=== PATIENT | female | born 1980 | race Hispanic/Latino ===

== ENCOUNTER 2022-07-24 20:57 | Emergency (ER) | payer OTHER ==
[2022-07-24] MEDS ORDERED: ONDANSETRON 4 MG/2 ML VIAL ONE (21:45)
[2022-07-24] MEDS ORDERED: FAMOTIDINE 20 MG/2 ML VIAL IV ONE (21:45)
[2022-07-24] MEDS ORDERED: MORPHINE 4 MG/ML SYR ONE (21:45)
[2022-07-24] MEDS ORDERED: NA CHLORIDE 0.9% 1,000 ML ONE (21:45)
[2022-07-24 22:04] LABS: Urine Blood 2+ (Negative); Urine Glucose Negative (Negative); Urine Protein 2+ (Negative); Urine Specific Gravity >=1.030 (1.005-1.030); Urine pH 5.5 (5.0-7.0)
[2022-07-24 22:12] LABS: Absolute Lymphocytes (CBC) 2.8 K/uL (0.7-4.9); Hematocrit 33.4 % (36.0-45.0); Lymphocytes % 28.1 % (15.3-44.8); MCV 79.4 fL (80-100); MPV 8.8 fL (7.6-11.3); RBC Red Blood Cell Count 4.21 M/uL (3.86-4.86)
[2022-07-24 22:29] LABS: Urine Specific Gravity/Preg >1.030 (1.005-1.030)
[2022-07-24 22:32] LABS: Albumin 2.8 g/dL (3.4-5.0); Bilirubin Total 0.3 mg/dL (0.2-1.0); Potassium 3.9 mmol/L (3.5-5.1)
--- NOTE | 2022-07-24 23:23 | RAD REPORT ---
EXAM DESCRIPTION: CTAbdomen Pelvis W Contrast - 07/24/2022 11:16 pm CLINICAL HISTORY: Epigastric pain COMPARISON: No comparisons TECHNIQUE: CT of the abdomen and pelvis was performed with IV contrast. All CT scans are performed using dose optimization technique as appropriate and may include automated exposure control or mA/KV adjustment according to patient size. FINDINGS: Lower chest: No acute abnormality. Liver: No acute abnormality or suspicious lesions. Biliary: Cholecystectomy Stomach: No significant focal abnormality. Duodenum: No significant focal abnormality. Pancreas: No significant abnormality. Spleen: No significant abnormality. Adrenal: No suspicious lesions. Kidney/ureter: No hydronephrosis. No renal calculi. Retroperitoneum: No retroperitoneal adenopathy. Vascular: No aneurysm. Bowel: No significant focal abnormality. No appendicitis. Peritoneum: No ascites or free air. Small fat containing inguinal hernias. Bladder: Circumferential bladder wall thickening and hyperenhancement. Reproductive: 5.6 cm left adnexal cyst. Bones: No acute fracture. Other: n/a IMPRESSION: 1. Bladder wall thickening and hyperenhancement concerning for cystitis. 2. 5.6 cm left adnexal cyst. Recommend 6 week follow-up pelvic ultrasound. This is probably physiolog ic.
--- NOTE | 2022-07-25 00:53 | EDPHYS ---
Physician Documentation [facility] Name: Saskia Urbina Age: 41 yrs Sex: Female : 1980 Arrival Date: 07/24/2022 Time: 21:02 Bed 13 Private MD: ED Physician Tae Bettencourt HPI: 07/24 21:39 This 41 yrs old Female presents to ER via Ambulatory with complaints of pm1 Abdominal Pain. 21:39 The patient presents with abdominal pain in the epigastric area, in the left lower pm1 quadrant. 07/25 02:47 Onset: The symptoms/episode began/occurred 3 day(s) ago. The symptoms do not radiate. pm1 Associated signs and symptoms: Pertinent positives: diarrhea, Pertinent negatives: nausea and vomiting, fever. The symptoms are described as achy. Modifying factors: The symptoms are alleviated by nothing, the symptoms are aggravated by touching the area. Severity of pain: in the emergency department the pain is actually worse. The patient has not experienced similar symptoms in the past. The patient has not recently seen a physician. 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 - Social history:: Smoking status: Patient reports the use of cigarette tobacco products, denies chronic smoking, but will smoke occasionally. ROS: 21:39 Constitutional: Negative for fever, chills, and weight loss, Cardiovascular: Negative pm1 for chest pain, palpitations, and edema, Respiratory: Negative for shortness of breath, cough, wheezing, and pleuritic chest pain. 21:39 Back: Negative for injury and pain, : Negative for injury, bleeding, discharge, and swelling, MS/Extremity: Negative for injury and deformity, Skin: Negative for injury, rash, and discoloration, Neuro: Negative for headache, weakness, numbness, tingling, and seizure. 21:39 Abdomen/GI: Positive for abdominal pain, diarrhea, of the epigastric area and left lower quadrant, Negative for nausea and vomiting. 21:39 All other systems are negative. Exam: 21:39 Constitutional: This is a well developed, well nourished patient who is awake, alert, pm1 and in no acute distress. Head/Face: Normocephalic, atraumatic. 21:39 Back: No spinal tenderness. No costovertebral tenderness. Full range of motion. Skin: Warm, dry with normal turgor. Normal color with no rashes, no lesions, and no evidence of cellulitis. MS/ Extremity: Pulses equal, no cyanosis. Neurovascular intact. Full, normal range of motion. 21:39 Eyes: Exam is negative for acute changes, Extraocular movements: no acute changes, Conjunctiva: no acute changes, no injection. 21:39 ENT: Exam is negative for acute changes, Mouth: no acute changes, Lips: normal, moist, Oral mucosa: normal, pink and intact, moist. 21:39 Cardiovascular: Exam negative for acute changes, Rate: normal, Rhythm: regular, Pulses: no pulse deficits are appreciated. 21:39 Respiratory: Exam negative for acute changes, respiratory distress, shortness of breath. 21:39 Abdomen/GI: Inspection: obese Palpation: soft, in all quadrants, mild abdominal tenderness, in the epigastric area, suprapubic area and left lower quadrant, rebound tenderness, is not appreciated. 21:39 Neuro: Exam negative for acute changes, Orientation: is normal, Mentation: is normal, Motor: is normal, moves all fours. Vital Signs: 21:13 Pulse 57; Resp 20; Temp 98.7; Pulse Ox 100% ; Weight 107.05 kg; Height 5 ft. 5 in. kb3 (165.10 cm); Pain 10/10; 21:31 BP 136 / 69; Pulse 66; Resp 17 S; Pulse Ox 98% on R/A; Height 5 ft. 5 in. (165.10 cm) aa9 (R); 22:00 BP 119 / 75; Pulse 57; Resp 17 S; Pulse Ox 95% on R/A; aa9 22:30 BP 112 / 70; Pulse 60; Resp 17 S; Pulse Ox 96% on R/A; aa9 07/25 00:40 BP 103 / 62; Pulse 47; Resp 16 S; Pulse Ox 99% on R/A; aa9 07/24 21:31 Body Mass Index 39.27 (107.05 kg, 165.10 cm) 9 MDM: 07/24 21:25 Patient medically screened. pm1 07/25 00:51 Data reviewed: vital signs. Data interpreted: Pulse oximetry: on room air is 99 %. pm1 Interpretation: normal. Counseling: I had a detailed discussion with the patient and/or guardian regarding: the historical points, exam findings, and any diagnostic results supporting the discharge/admit diagnosis, lab results, radiology results, the need for outpatient follow up, to return to the emergency department if symptoms worsen or persist or if there are any questions or concerns that arise at home. 07/24 21:39 Order name: CBC with Diff; Complete Time: 22:39 pm1 07/24 21:39 Order name: CMP; Complete Time: 22:39 pm1 07/24 21:39 Order name: Lipase; Complete Time: 22:39 pm1 07/24 22:04 Order name: Urine Dipstick-Ancillary; Complete Time: 22:07 EDMS 07/24 22:26 Order name: Urine --Ancillary (enter results); Complete Time: 22:39 2 07/24 23:25 Order name: Urine Microscopic Only pm1 07/24 21:39 Order name: CT Abd/Pelvis - IV Contrast Only; Complete Time: 23:25 pm1 07/24 21:39 Order name: IV Saline Lock; Complete Time: 22:05 pm1 07/24 21:39 Order name: Labs collected and sent; Complete Time: 22:05 pm1 07/24 21:39 Order name: Urine Dipstick-Ancillary (obtain specimen); Complete Time: 22:05 pm1 07/24 21:39 Order name: Urine Test (obtain specimen); Complete Time: 22:05 pm1 Administered Medications: 07/24 22:06 Drug: NS 0.9% 1000 ml Route: IV; Rate: 1 bolus; Site: right forearm; aa9 07/25 00:50 Follow up: Response: No adverse reaction; IV Status: Completed infusion; IV Intake: aa9 1000ml 07/24 22:06 Drug: Pepcid (famotidine) 20 mg Route: IVP; Site: right forearm; aa9 22:39 Follow up: Response: No adverse reaction 22:06 Drug: Zofran (Ondansetron) 4 mg Route: IVP; Site: right forearm; aa9 22:39 Follow up: Response: No adverse reaction aa9 22:06 Drug: morphine 4 mg Route: IVP; Infused Over: 4 mins; Site: right forearm; aa9 22:39 Follow up: Response: No adverse reaction; RASS: Alert and Calm (0) 07/25 01:08 Drug: Rocephin (cefTRIAXone) 1 grams Route: IV; Rate: calculated rate; Site: right aa9 antecubital; 01:08 Follow up: Response: No adverse reaction; IV Status: Completed infusion; IV Intake: [id number] Disposition Summary: 07/25/22 00:51 Discharge Ordered Location: Home pm1 Problem: new pm1 Symptoms: have improved pm1 Condition: Stable pm1 Diagnosis - Acute cystitis pm1 - Other ovarian cysts pm1 Followup: pm1 - With: Emergency Department - When: As needed - Reason: Worsening of condition Followup: pm1 - With: Private Physician - When: 2 - 3 days - Reason: Recheck today's complaints, Continuance of care, Re-evaluation by your physician Discharge Instructions: - Discharge Summary Sheet pm1 - Ovarian Cyst pm1 - Urinary Tract Infection, Adult pm1 Forms: - Medication Reconciliation Form pm1 - Thank You Letter pm1 - Antibiotic Education pm1 - Prescription Opioid Use pm1 Prescriptions: - Bactrim DS 800-160 mg Oral Tablet - take 1 tablet by ORAL route every 12 hours for 10 days; 20 tablet; Refills: 0, pm1 Product Selection Permitted - Tramadol 50 mg Oral Tablet - take 1 tablet by ORAL route every 8 hours as needed; 12 tablet; Refills: 0, pm1 Product Selection Permitted Addendum: 07/31/2022 09:56 Co-signature as Attending Physician, Tae Bettencourt MD I agree with the assessment and c hilliard plan of care. Signatures: Dispatcher [employer] Tae Alfonso MD MD cha Marinas, Patrick, NP ROTARY LITHOGRAPHIC PRESS OPERATOR pm1 Valentina Carvajal RN RN aa9 Jeanine Lynn RN RN kb3 Corrections: (The following items were deleted from the chart) 07/25 02:47 07/24 21:39 The patient presents with abdominal pain in the lower abdomen, pm1 pm1
--- NOTE | 2022-07-25 00:53 | ER ---
Nurse's Notes [facility] Name: Saskia Urbina Age: 41 yrs Sex: Female : 1980 Arrival Date: 07/24/2022 Time: 21:02 Bed 13 Private MD: Diagnosis: Acute cystitis;Other ovarian cysts Presentation: 07/24 21:13 Chief complaint: Patient states: Epigastric and left-sided abdominal pain x3 days with kb3 diarrhea. Denies vomiting, fever. Coronavirus screen: Vaccine status: Patient reports receiving the 2nd dose of the covid vaccine. Client denies travel out of the [place] in the last 14 days. Ebola Screen: Patient negative for fever greater than or equal to 101.5 degrees Fahrenheit, and additional compatible Ebola Virus Disease symptoms Patient denies exposure to infectious person. Patient denies travel to an Ebola-affected area in the 21 days before illness onset. Initial Sepsis Screen: Does the patient meet any 2 criteria? No. Patient's initial sepsis screen is negative. Does the patient have a suspected source of infection? No. Patient's initial sepsis screen is negative. Risk Assessment: Do you want to hurt yourself or someone else? Patient reports no desire to harm self or others. Onset of symptoms was July 21, 2022. 21:13 Method Of Arrival: Ambulatory kb3 21:13 Acuity: PAGE 3 kb3 Triage Assessment: 21:14 General: Appears in no apparent distress. Behavior is calm, cooperative. Pain: kb3 Complains of pain in epigastric area, left upper quadrant and left lower quadrant Pain does not radiate. Pain currently is 10 out of 10 on a pain scale. GI: Reports upper abdominal pain, diarrhea, epigastric pain. 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 - Social history:: Smoking status: Patient reports the use of cigarette tobacco products, denies chronic smoking, but will smoke occasionally. Screenin:31 Abuse screen: Denies threats or abuse. Denies injuries from another. Nutritional aa9 screening: No deficits noted. Tuberculosis screening: No symptoms or risk factors identified. Fall Risk None identified. Assessment: 21:29 General: Appears uncomfortable, obese, Behavior is cooperative, appropriate for age. aa9 Pain: Complains of pain in epigastric area, posterior aspect of left lateral abdomen, left upper quadrant and left lower quadrant Pain currently is 6 out of 10 on a pain scale. Quality of pain is described as burning, Noted to be grimacing, Also complains of nausea. Neuro: Level of Consciousness is awake, alert, obeys commands, Oriented to person, place, time, situation. Cardiovascular: Patient's skin is warm and dry. Respiratory: Airway is patent Respiratory effort is even, unlabored. GI: Bowel sounds present X 4 quads. Abd is soft X 4 quads Abdomen is tender to palpation in epigastric area, suprapubic area, left upper quadrant and left lower quadrant Reports diarrhea, nausea, Patient currently denies vomiting. : No signs and/or symptoms were reported regarding the genitourinary system. EENT: No signs and/or symptoms were reported regarding the EENT system. Derm: Skin is intact, is healthy with good turgor. Musculoskeletal: No signs and/or symptoms reported regarding the musculoskeletal system. 23:54 Reassessment: Patient appears in no apparent distress at this time. Patient is alert, aa9 oriented x 3, equal unlabored respirations, skin warm/dry/pink. Patient denies pain at this time. 07/25 00:46 Reassessment: Patient appears in no apparent distress at this time. pt ambulated to aa9 restroom independently. Vital Signs: 07/24 21:13 Pulse 57; Resp 20; Temp 98.7; Pulse Ox 100% ; Weight 107.05 kg; Height 5 ft. 5 in. kb3 (165.10 cm); Pain 06/23; 21:31 BP 136 / 69; Pulse 66; Resp 17 S; Pulse Ox 98% on R/A; Height 5 ft. 5 in. (165.10 cm) aa9 (R); 22:00 BP 119 / 75; Pulse 57; Resp 17 S; Pulse Ox 95% on R/A; aa9 22:30 BP 112 / 70; Pulse 60; Resp 17 S; Pulse Ox 96% on R/A; aa9 07/25 00:40 BP 103 / 62; Pulse 47; Resp 16 S; Pulse Ox 99% on R/A; aa9 07/24 21:31 Body Mass Index 39.27 (107.05 kg, 165.10 cm) aa9 ED Course: 07/24 21:02 Patient arrived in ED. mr 21:14 Triage completed. kb3 21:14 Arm band placed on right wrist. kb3 21:24 Valentina Carvajal, LISA is Primary Nurse. aa9 21:25 Justin Joseph NP is PHCP. pm1 21:25 Tae Bettencourt MD is Attending Physician. pm1 21:32 Patient has correct armband on for positive identification. Placed in gown. Bed in low aa9 position. Call light in reach. Side rails up X2. 21:58 Inserted saline lock: 20 gauge in right forearm, using aseptic technique. Blood aa9 collected. 22:05 CBC with Diff Sent. aa9 22:05 CMP Sent. aa9 22:05 Lipase Sent. aa9 23:18 CT Abd/Pelvis - IV Contrast Only In Process Unspecified. EDMS 07/25 00:50 Urine Microscopic Only Sent. aa9 01:09 No provider procedures requiring assistance completed. IV discontinued, intact, aa9 bleeding controlled, No redness/swelling at site. Pressure dressing applied. Administered Medications: 07/24 22:06 Drug: NS 0.9% 1000 ml Route: IV; Rate: 1 bolus; Site: right forearm; aa9 07/25 00:50 Follow up: Response: No adverse reaction; IV Status: Completed infusion; IV Intake: aa9 1000ml 07/24 22:06 Drug: Pepcid (famotidine) 20 mg Route: IVP; Site: right forearm; aa9 22:39 Follow up: Response: No adverse reaction aa9 22:06 Drug: Zofran (Ondansetron) 4 mg Route: IVP; Site: right forearm; aa9 22:39 Follow up: Response: No adverse reaction aa9 22:06 Drug: morphine 4 mg Route: IVP; Infused Over: 4 mins; Site: right forearm; aa9 22:39 Follow up: Response: No adverse reaction; RASS: Alert and Calm (0) aa9 07/25 01:08 Drug: Rocephin (cefTRIAXone) 1 grams Route: IV; Rate: calculated rate; Site: right aa9 antecubital; 01:08 Follow up: Response: No adverse reaction; IV Status: Completed infusion; IV Intake: [id number] Medication: 07/24 21:32 VIS not applicable for this client. aa9 Intake: 07/25 00:50 IV: 1000ml; Total: 1000ml. aa9 01:08 IV: 10ml; Total: 1010ml. aa9 Outcome: 00:51 Discharge ordered by . pm1 01:09 Discharged to home ambulatory. aa9 01:09 Condition: stable 01:09 Discharge instructions given to patient, Instructed on discharge instructions, follow up and referral plans. medication usage, Demonstrated understanding of instructions, follow-up care, medications, Prescriptions given X 2. 01:09 Patient left the ED. aa9 Signatures: Dispatcher [employer] Yoana Nails OpalJustin, TRICIA ENVIRONMENTAL ADVISER pm1 Valentina Carvajal, LISA RN aa9 Jeanine Lynn RN RN kb3
[2022-07-25] MEDS ORDERED: CEFTRIAXONE 1000 MG/VIAL ONE (01:02)
[2022-07-25 01:18] LABS: Urine Bacteria <20 /HPF (<20); Urine Mucus Slight /HPF (None Seen)
[2022-07-25 01:28] VITALS: TEMP 98.7
[2022-07-25 01:33] VITALS: BP 103/62; O2SAT 99
== END 2022-07-25 01:09 | disposition home or self-care (01) ==
LOC: ER 20:57
DX: N30.00 Acute cystitis without hematuria (principal); N83.299 Other ovarian cyst, unspecified side; F17.210 Nicotine dependence, cigarettes, uncomplicated; Z21 Asymptomatic human immunodeficiency virus [HIV] infection status
CPT/HCPCS: 87088; 85025; 87086; 36415; 81025; 87077; 87186; 81003; 81015; 83690; 80053; 74177; 99284; Q9967; J7030; J2405

== ENCOUNTER 2024-08-16 09:22 | Emergency (ER) | payer OTHER ==
--- OUTSIDE RECORDS SUMMARY | 2024-08-16 09:28 | XMS REPORT | Continuity of Care Document ---
Author Name Unknown Address [address] [place] [address] [facility] thconnect Address [address] [place] [address] Care Team Providers Care Medical Technologist Name Role Phone [email or web address] Attending Clinician Unavailable [email or web address] Attending Clinician Unavailable tyrone Attending Clinician Unavailable CORY MAX Attending Clinician Unavailable DEB CHERY Attending Clinician Un available MD HERBERT Attending Clinician Unavailab JUAN PABLO [place] Attending Clinician UnavailMARKOS Mendez Attending Clinician Unavailab le LAB90 Attending Clinician Unavailable NATTY CARTY Attending Clinician Unavailable YUE GUIDRY Attending Clinician Unavaila RAJNI [place] Attending Clinician Unavailable MACARIO AGUILAR Attending Clinician Unavailable EMELYN BONNER Attending Clinician Unavailable REYNA CROCKETT Attending Clinician Unavailable JACLYN REAL Attending Clinician Unavailable EYAD WHEELER Attending Clinician Unavailab franny CRUZ Attending Clinician Unavailable Bolivar Nix MD Attending Clinician Unavailab Simone Brock Attending Clinician Unavailable Sabino Isbell MD Attending Clinician [phone] Sahil GONZALEZ, Judy Unavailable Unavailable Bolivar Nix MD Unavailable Unavailable Sabino Isbell MD Unavailable [phone] Payers Payer Name Policy Type Policy Number Effective Date Expirati on Date Source [employer] P [id number] 2022 00:00:00 [employer] S [id number] 2022 00:00:00 2023 00:00:00 [employer] O [id number] 2022 00:00:00 2023 00:00:00 [employer] P [id number] 2022 00:00:00 [employer] P [id number] 2021 00:00:00 [employer]ET[employer]ACE P [id number] 2022 00:00:00 [facility] YOSSI MAHER COPAY FOCUS 9 [id number] 2023 00:00:00 [employer]ET[employer] MP [facility] 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 94 ON 9 [id number] 2023 00:00:00 [place] [employer] OON 4 [id number] 2023 00:00:00 Problems Condition Name Condition Details Condition Category Status Onset Date Resolution Date Last Treatment Date Treating Clinician Comments Source Abnormal CT of the chest Abnormal CT of the chest Disease Active 05-03 00:00: 00 Megha weber Lung nodule Lung nodule Disease Active 05-03 00:00: 00 Megha weber Mild major depression Mild major depression Disease Active 03-07 00:00: 00 Megha weber Lactose intoleranc e Lactose intoleranc e Disease Active 03-07 00:00: 00 Megha Alold - Externa l DM type 2 with diabetic mixed hyperlipid emia (multi HCC) DM type 2 with diabetic mixed hyperlipid emia (multi HCC) Disease Active 02-19 00:00: 00 Megha Alold - Externa l Other specified anemias Other specified anemias Disease Active 02-19 00:00: 00 Megha Alold - Externa l Well adult exam Well adult exam Disease Active 01-12 00:00: 00 Megha Alold - Externa l Umbilical hernia without obstructio n and without gangrene Umbilical hernia without obstructio n and without gangrene Disease Active 12-16 00:00: 00 Megha Alold - Externa l Asymptomat ic HIV infection, with no history of HIV-relate d illness (multi HCC) Asymptomat ic HIV infection, with no history of HIV-relate d illness (multi HCC) Disease Active 12-10 00:00: 00 Megha Alold - Externa l History of diverticul itis History of diverticul itis Disease Active 12-10 00:00: 00 Megha Alold - Externa l Left ovarian cyst Left ovarian cyst Disease Active 12-10 00:00: 00 Megha Alold - Externa l Class 2 severe obesity due to excess calories with serious comorbidit y and body mass index (BMI) of 39.0 to 39.9 in adult Class 2 severe obesity due to excess calories with serious comorbidit y and body mass index (BMI) of 39.0 to 39.9 in adult Disease Active 12-10 00:00: 00 Megha Alold - Externa l Right ovarian cyst Right ovarian cyst Disease Active 12-10 00:00: 00 Megha Alold - Externa l Counseling /education Condition Active 10-07 00:00: 00 2022-10-08 15:54:44 Judy Baxter [facility] R ovarian cyst Condition Active 09-24 00:00: 00 2022-09-24 15:40:26 Bolivar Nix seen on CT A/P in September 2022 [facility] b/l ovarian cyst Condition Active 09-24 00:00: 00 2022-10-13 16:34:[address] A/P July 2022: 5.6cm L anexl cystCT A/P September 2022: R ovarian cyst [facility] Elevated Liver Function Tests (LFT) Condition Active 2021-09 00:00: 00 2022-08-26 13:26:40 Bolivar Nix [facility] HIV Condition Active 2021-09 00:00: 00 2022-09-24 15:37:49 Bolivar Nix [facility] Abdominal pain, LLQ Condition Active 2021-09 00:00: 00 2022-07-29 17:48:26 Sabino Isbell [facility] History of Past Illness Condition Name Condition Details Condition Category Status Onset Date Resolution Date Last Treatment Date Treating Clinician Comments Source GERD (gastroeso phageal reflux disease) Condition Inactiv e 2021-09 00:00: 00 2022-09-22 00:00:00 2022-09-22 13:00:52 Bolivar Nix [facility] Examinatio n, well woman Condition Inactiv e 2021-09 00:00: 00 2022-08-26 00:00:00 2022-08-26 13:26:40 Bolivar Nix [facility] Screening for Condition Inactiv e 2021-09 00:00: 00 2022-08-26 00:00:00 2022-08-26 13:26:40 Bolivar Nix [facility] Obesity Condition Inactiv e 2021-09 00:00: 00 2022-08-26 00:00:00 2022-08-26 13:26:40 Bolivar Nix [facility] Smoker Condition Inactiv e 2021-09 00:00: 00 2022-08-26 00:00:00 2022-08-26 13:26:40 Bolivar Nix [facility] Screening for tuberculos is Condition Inactiv e 2021-09 00:00: 00 2022-08-26 00:00:00 2022-08-26 13:26:40 Bolivar Nix [facility] Std screening Condition Inactiv e 2021-0915 00:00: 00 2022-08-26 00:00:00 2022-08-26 13:26:40 Bolivar Nix [facility] Social History Social Habit Start Date Stop Date Quantity Comments Source History SDOH Alcohol Binge Megha Elmore - External History of tobacco use Cigarette Smoker Megha castellon - External Gender identity Larissa Elmore - External Sexual orientation Cy jimenez Ramírez - External History SDOH Alcohol Frequency Megha Elmore - External History SDOH Alcohol Std Drinks Megha Elmore - External Alcoholic beverage intake 2024-05-03 00:00:00 2024-05-03 00:00:00 Current drinker of alcohol (finding) Megha Elmore - External Tobacco use and exposure 2024-05-03 00:00:00 2024-05-03 00:00:00 Smokeless tobacco non-user Megha Elmore - External Alcohol intake 2023-11-30 00:00:00 2023-11-30 00:00:00 Current drinker of alcohol (finding) Megha Elmore - External History of Social function 2023-06-01 00:00:00 2023-06-01 00:00:00 Megha Elmore - External Cigarettes smoked current (pack per day) - Reported 2023-01-23 00:00:00 2023-01-23 00:00:00 Megha Elmore - External Alcohol Comment 2022-12-10 00:00:00 2022-12-10 00:00:00 rarely Megha Elmore - External Education 2022-12-10 00:00:00 2022-12-10 00:00:00 6 Megha Elmore - External time of call 2022-11-05 10:50:55 2022-11-05 10:50:55 11/05/2022 10:51 AM [facility] albumin, serum 2022-09-22 13:14:00 2022-09-22 13:14:00 3.8 g/dL [facility] alcohol use 2022-09-22 08:45:34 2022-09-22 08:45:34 [id number] [facility] is there any chance that you could be ? 2022-09-22 08:45:34 2022-09-22 08:45:34 No [facility] PHQ2 Questionairre Score 2022-09-22 08:45:34 2022-09-22 08:45:34 [facility] drug use 2022-09-22 08:45:34 2022-09-22 08:45:34 Never [facility] if the patient is using/has used a vaping item, Current, Former, Never Used, Not asked 2022-09-22 08:45:34 2022-09-22 08:45:34 No [facility] social history reviewed E&M 2022-09-22 08:45:34 2022-09-22 08:45:34 reviewed today [facility] passive cigarette smoke exposure 2022-09-22 08:45:34 2022-09-22 08:45:34 [id number] [facility] sexual orientation 2022-08-26 12:51:27 2022-08-26 12:51:27 Straight or heterosexual [facility] tobacco use (cigarettes, cigar, chew, pipe) 2022-07-29 13:54:51 2022-07-29 13:54:51 Currently [facility] cigarettes, number smoked per day 2022-07-29 13:54:51 2022-07-29 13:54:51 1-2 [facility] Sex assigned at 1980 00:00:00 1980 00:00:00 Megha Ambriz Smoking Status Start Date Stop Date Source Ex-smoker 2024-05-03 00:00:00 2024-05-03 00:00:00 Megha Ambriz Never smoked tobacco (finding) [facility] Occasional tobacco smoker (finding) 2022-07-29 13:54:51 [facility] Medications Ordered Medication Name Filled Medication Name Start Date Stop Date Current Medication? Ordering Clinician Indication Dosage Frequency Signature (SIG) Comments Components Source Gabapentin 100 MG oral Capsule 05-03 00:00: 00 Yes [id number] 100mg Q.5D Take 1 capsule (100 mg total) by mouth 2 times daily as needed. Megha weber Bictegravir -Emtricitab -Tenofov 50-200-25 MG oral Tablet 7- 00:00: 00 Yes [id number] 1{tbl} QD Take 1 tablet by mouth daily. Megha weber Metformin HCl 500 MG oral Tablet 6-24 00:00: 00 Yes [id number] 3 500mg Take 1 tablet (500 mg total) by mouth in the morning and 1 tablet (500 mg total) in the evening. Take with meals. Megha weber Metformin HCl 500 MG oral Tablet -15 00:00: 00 03-07 00:00 :00 No [id number] 3 500mg Take 1 tablet (500 mg total) by mouth in the morning and 1 tablet (500 mg total) in the evening. Take with meals. Megha weber Sertraline HCl 25 MG oral Tablet 4-15 00:00: 00 03-07 00:00 :00 No [id number] 25mg Take 1 tablet (25 mg total) by mouth daily. Megha weber Ibuprofen (MOTRIN) 800 MG oral Tablet 2-11 00:00: 00 11-29 00:00 :00 No 800mg [id number] 3D Take 1 tablet (800 mg total) by mouth every 8 hours as needed FOR PAIN. Megha weber Cyclobenzap rine HCl 10 MG oral Tablet 2-10 00:00: 00 11-29 00:00 :00 No TAKE 1 TABLET BY MOUTH EVERY 12 HOURS DIRECTED NEEDED FOR MUSCLE SPASM Megha weber Bictegravir -Emtricitab -Tenofov 50-200-25 MG oral Tablet 1-12 00:00: 00 03-14 00:00 :00 No [id number] 1{tbl} QD Take 1 tablet by mouth daily. Megha weber Blood Glucose Monitoring Suppl (Accu-Chek Guide Me) w/Device does not apply Kit 09-18 00:00: 00 12-27 00:00 :00 No [id number] 3 1{kit} 1 kit by does not apply route daily Check once per day as instructed . Megha weber Accu-Chek Softclix Lancets does not apply Misc 09-18 00:00: 00 12-27 00:00 :00 No [id number] 3 One stick 1 times a day as instructed . Megha weber Glucose Blood (Accu-Chek Guide) in vitro Strip 09-18 00:00: 00 12-27 00:00 :00 No [id number] 3 Check 1 times a day as instructed . Megha weber Metformin HCl 500 MG oral Tablet 09-15 00:00: 00 12-27 00:00 :00 No [id number] 3 500mg Take 1 tablet (500 mg total) by mouth daily (with breakfast) . Megha weber Bictegravir -Emtricitab -Tenofov 50-200-25 MG oral Tablet 2022-09 2- 00:00: 00 09-25 00:00 :00 No [id number] 1{tbl} Take 1 tablet by mouth daily. Megha weber Metformin HCl 500 MG oral Tablet 2022-09 1-06 00:00: 00 09-15 00:00 :00 No [id number] 3 500mg Take 1 tablet (500 mg total) by mouth in the morning and 1 tablet (500 mg total) in the evening. Take with meals. Megha weber Bictegravir -Emtricitab -Tenofov 50-200-25 MG oral Tablet 24 14:54: 32 Yes [id number] 1{tbl} Take 1 tablet by mouth daily. Megha weber Metformin HCl 500 MG oral Tablet 8-24 00:00: 00 Yes [id number] 3 500mg Take 1 tablet (500 mg total) by mouth daily (with breakfast) . Megha weber Fluconazole (Diflucan) 150 MG oral Tablet 8-07 00:00: 00 05-07 00:00 :00 No 150mg Take 1 tablet (150 mg total) by mouth every 3 days for 2 doses Megha weber Metronidazo le (Flagyl) 500 MG oral Tablet 7- 00:00: 00 04-20 00:00 :00 No 500mg Take 1 tablet (500 mg total) by mouth 2 times daily for 7 days for bacterial vaginosis, no alcohol Megha ewber Bictegravir -Emtricitab -Tenofov (Biktarvy) 50-200-25 MG oral Tablet 02-23 00:00: 00 04-20 00:00 :00 No 1{tbl} Take 1 tablet by mouth daily Megha weber Metformin HCl 500 MG oral Tablet 02-19 00:00: 00 05-07 00:00 :00 No [id number] 3 500mg Take 1 tablet (500 mg total) by mouth in the morning and 1 tablet (500 mg total) in the evening. Take with meals. Megha weber Nitrofurant oin Monohyd Macro (Macrobid) 100 MG oral Capsule 01-28 00:00: 00 Yes 100mg Take 1 capsule (100 mg total) by mouth 2 times daily Megha weber Ceftriaxone Sodium (ROCEPHIN) 500 mg 01-23 15:15: 00 01-23 14:45 :00 No [id number] 500mg Megha weber Metronidazo le (Flagyl) 500 MG oral Tablet 01-23 00:00: 00 02-07 04:59 :00 No [id number] 500mg Take 1 tablet (500 mg total) by mouth 2 times daily for 14 days No alcohol while on this medication Megha weber Doxycycline Hyclate 100 MG oral Tablet 01-23 00:00: 00 02-07 04:59 :00 No [id number] 100mg Take 1 tablet (100 mg total) by mouth 2 times daily for 14 days Megha weber Pantoprazol e Sodium 40 MG oral Tablet Delayed Response 12-16 00:00: 00 01-23 00:00 :00 No [id number] 40mg Take 1 tablet (40 mg total) by mouth daily Megha weber Ketoconazol e 2 % apply externally Cream 12-16 00:00: 00 01-23 00:00 :00 No [id number] Apply twice daily to skin for 14 days Megha weber Bictegravir -Emtricitab -Tenofov (Biktarvy) 50-200-25 MG oral Tablet 12-11 00:00: 00 02-23 00:00 :00 No 1{tbl} Take 1 tablet by mouth daily Megha weber Biktarvy 50-200-25 MG oral Tablet 11-25 00:00: 00 Yes 1{tbl} Take 1 tablet by mouth daily Megha weber BIKTARVY (BICTEGRAVI R-EMTRICITA B-TENOFOV) 50-200-25 MG TABS 09-22 00:00: 00 Yes Bolivar Nix MD 1 1 tablet by mouth once a day TAKE ONE TABLET BY MOUTH ONCE DAILY [facility] BIKTARVY (BICTEGRAVI R-EMTRICITA B-TENOFOV) 50-200-25 MG TABS 2021-09 14:45: 15 09-22 00:00 :00 No Bolivar Nix MD 1 Take 1 tablet by mouth once a day [facility] (TRAMADOL HCL) 50 MG TABS 2021-09 14:04: 44 Yes TAKE 1 TABLET BY MOUTH EVERY 8 HOURS NEEDED [facility] (SULFAMETHO XAZOLE-TRIM ETHOPRIM) 800-160 MG TABS 2021-09 14:04: 44 08-12 00:00 :00 No TAKE 1 TABLET BY MOUTH EVERY 12 HOURS FOR 10 DAYS [facility] (OMEPRAZOLE ) 20 MG [facility] 2021-09 00:00: 00 Yes Sabino Isbell MD 1 Take 1 tablet by mouth once a day take 1 tabs by mouth once a day [facility] CIPRO (CIPROFLOXA NIR HCL) 500 MG TABS 2021-09 00:00: 00 Yes Sabino Isbell MD 1 Take 1 tablet by mouth twice a day [facility] Immunizations Ordered Immunization Name Filled Immunization Name Date Status Comments Source Pneumococcal Vaccine, Polysaccharide 2023-01-12 00:00:00 Completed Megha Manybold - External Pneumococcal Vaccine, Polysaccharide 2023-01-12 00:00:00 Completed Megha Manybold - External Pneumococcal Vaccine, Polysaccharide 2023-01-12 00:00:00 Completed Megha Seybold - External Pneumococcal Vaccine, Polysaccharide 2023-01-12 00:00:00 Completed Megha Manybold - External Pneumococcal Vaccine, Polysaccharide 2023-01-12 00:00:00 Completed Megha Manybold - External Pneumococcal Vaccine, Polysaccharide 2023-01-12 00:00:00 Completed Megha Manybold - External Pneumococcal Vaccine, Polysaccharide 2023-01-12 00:00:00 Completed Megha Manybold - External Pneumococcal Vaccine, Polysaccharide 2023-01-12 00:00:00 Completed Megha Manybold - External Adacel IM [id number] 2022-09-22 12:56:00 Completed [facility] Tdap- (Boostrix, Adacel) 2022-09-22 00:00:00 Completed Megha Manybold - External Tdap- (Boostrix, Adacel) 2022-09-22 00:00:00 Completed Megha Manybold - External Tdap- (Boostrix, Adacel) 2022-09-22 00:00:00 Completed Megha Manybold - External Tdap- (Boostrix, Adacel) 2022-09-22 00:00:00 Completed Megha Manybold - External Tdap- (Boostrix, Adacel) 2022-09-22 00:00:00 Completed Megha Alold - External Tdap- (Boostrix, Adacel) 2022-09-22 00:00:00 Completed Megha Seybold - External Tdap- (Boostrix, Adacel) 2022-09-22 00:00:00 Completed Megha Seybold - External Tdap- (Boostrix, Adacel) 2022-09-22 00:00:00 Completed Megha Seybold - External Tdap- (Boostrix, Adacel) 2022-09-22 00:00:00 Completed Megha Seybold - External Tdap- (Boostrix, Adacel) 2022-09-22 00:00:00 Completed Megha Seybold - External Influenza Virus Vaccine, Split, up to age 3 2022-07-08 00:00:00 Completed Megha Seybold - External COVID-19 BIVALENT VACCINE 2022-07-08 00:00:00 Completed Megha Seybold - External Influenza Virus Vaccine, Split, up to age 3 2022-07-08 00:00:00 Completed Megha Seybold - External COVID-19 BIVALENT VACCINE 2022-07-08 00:00:00 Completed Megha Seybold - External Influenza Virus Vaccine, Split, up to age 3 2022-07-08 00:00:00 Completed Megha Seybold - External COVID-19 BIVALENT VACCINE 2022-07-08 00:00:00 Completed Megha Seybold - External Influenza Virus Vaccine, Split, up to age 3 2022-07-08 00:00:00 Completed Megha Seybold - External COVID-19 BIVALENT VACCINE 2022-07-08 00:00:00 Completed Megha Seybold - External Influenza Virus Vaccine, Split, up to age 3 2022-07-08 00:00:00 Completed Megha Seybold - External COVID-19 BIVALENT BOOSTER VACCINE 2022-07-08 00:00:00 Completed Megha Seybold - External COVID-19 BIVALENT VACCINE 2022-07-08 00:00:00 Completed Megha Seybold - External Influenza Virus Vaccine, Split, up to age 3 2022-07-08 00:00:00 Completed Megha Seybold - External COVID-19 BIVALENT VACCINE 2022-07-08 00:00:00 Completed Megha Seybold - External Influenza Virus Vaccine, Split, up to age 3 2022-07-08 00:00:00 Completed Megha Seybold - External COVID-19 BIVALENT VACCINE MODERNA 2022-07-08 00:00:00 Completed Megha Manybold - External Influenza Virus Vaccine, Split, up to age 3 2022-07-08 00:00:00 Completed Megha Manybold - External Influenza Virus Vaccine, Split, up to age 3 2022-07-08 00:00:00 Completed Megha Manybold - External COVID-19 BIVALENT BOOSTER VACCINE MODERNA 2022-07-08 00:00:00 Completed Megha Alold - External Influenza Virus Vaccine, Split, up to age 3 2022-07-08 00:00:00 Completed Megha Manybold - External COVID-19 BIVALENT BOOSTER VACCINE A 2022-07-08 00:00:00 Completed Megha Alold - External Moderna COVID-19 Vaccine Bivalent Booster 50 mcg/0.5 mL dose for 18 years and older 2022-07-08 00:00:00 Completed [facility] Afluria Quadrivalent Intramuscular Suspension 2022-07-08 00:00:00 Completed [facility] Td- Tetanus & Diphtheria Vaccine (age 7+ years) 2020-11-21 00:00:00 Completed Megha Alold - External Meningococcal Vaccine- Conjugate(Menactra) 2020-11-21 00:00:00 Completed Megha Alold - External Td- Tetanus & Diphtheria Vaccine (age 7+ years) 2020-11-21 00:00:00 Completed Megha Seybold - External Meningococcal Vaccine- Conjugate(Menactra) 2020-11-21 00:00:00 Completed Megha Manybold - External Td- Tetanus & Diphtheria Vaccine (age 7+ years) 2020-11-21 00:00:00 Completed Megha Seybold - External Meningococcal Vaccine- Conjugate(Menactra) 2020-11-21 00:00:00 Completed Megha Seybold - External Td- Tetanus & Diphtheria Vaccine (age 7+ years) 2020-11-21 00:00:00 Completed Megha Seybold - External Meningococcal Vaccine- Conjugate(Menactra) 2020-11-21 00:00:00 Completed Megha Seybold - External Td- Tetanus & Diphtheria Vaccine (age 7+ years) 2020-11-21 00:00:00 Completed Megha Alold - External Meningococcal Vaccine- Conjugate(Menactra) 2020-11-21 00:00:00 Completed Megha Seybold - External Meningococcal Vaccine- Conjugate(Menactra) 2020-11-21 00:00:00 Completed Megha Alold - External Td- Tetanus & Diphtheria Vaccine (age 7+ years) 2020-11-21 00:00:00 Completed Megha Alold - External Meningococcal Vaccine- Conjugate(Menactra) 2020-11-21 00:00:00 Completed Megha Elmore - External Td- Tetanus & Diphtheria Vaccine (age 7+ years) 2020-11-21 00:00:00 Completed Megha Alold - External Meningococcal Vaccine- Conjugate(Menactra) 2020-11-21 00:00:00 Completed Megha Elmore - External Td- Tetanus & Diphtheria Vaccine (age 7+ years) 2020-11-21 00:00:00 Completed Megha Semelissaold - External Td- Tetanus & Diphtheria Vaccine (age 7+ years) 2020-11-21 00:00:00 Completed Megha Elmore - External Meningococcal Vaccine- Conjugate(Menactra) 2020-11-21 00:00:00 Completed Megha Elmore - External Td- Tetanus & Diphtheria Vaccine (age 7+ years) 2020-11-21 00:00:00 Completed Megha Elmore - External Meningococcal Vaccine- Conjugate(Menactra) 2020-11-21 00:00:00 Completed Megha Elmore - External Tetanus-Diphtheria Toxoids Td Intramuscular Suspension 2-2 LF/0.5ML 2020-11-21 00:00:00 Completed [facility] Menactra Intramuscular Injectable 2020-11-21 00:00:00 Completed [facility] Pneumococcal Conjugate 15 (Vaxneuvance) 2015-12-20 00:00:00 Completed Megha Elmore - External Pneumococcal Conjugate 15 (Vaxneuvance) 2015-12-20 00:00:00 Completed Megha Alold - External Pneumococcal Conjugate 15 (Vaxneuvance) 2015-12-20 00:00:00 Completed Megha Seybold - External Pneumococcal Conjugate 15 (Vaxneuvance) 2015-12-20 00:00:00 Completed Megha Seybold - External Pneumococcal Conjugate 15 (Vaxneuvance) 2015-12-20 00:00:00 Completed Megha Seybold - External Pneumococcal Conjugate 15 (Vaxneuvance) 2015-12-20 00:00:00 Completed Megha Seybold - External Pneumococcal Conjugate 15 (Vaxneuvance) 2015-12-20 00:00:00 Completed Megha Seybold - External Pneumococcal Conjugate 15 (Vaxneuvance) 2015-12-20 00:00:00 Completed Megha Seybold - External Pneumococcal Conjugate 15 (Vaxneuvance) 2015-12-20 00:00:00 Completed Megha Seybold - External Pneumococcal Conjugate 15 (Vaxneuvance) 2015-12-20 00:00:00 Completed Megha Seybold - External VAXNEUVANCE 2015-12-20 00:00:00 Completed [facility] HEPATITIS A- PEDI/ADOL 2012-10-05 00:00:00 Completed Megha Manybold - External HEPATITIS A- PEDI/ADOL 2012-10-05 00:00:00 Completed Megha Manybold - External HEPATITIS A- PEDI/ADOL 2012-10-05 00:00:00 Completed Megha Manybold - External HEPATITIS A- PEDI/ADOL 2012-10-05 00:00:00 Completed Megha Manybold - External HEPATITIS A- PEDI/ADOL 2012-10-05 00:00:00 Completed Megha Alold - External HEPATITIS A- PEDI/ADOL 2012-10-05 00:00:00 Completed Megha Manybold - External HEPATITIS A- PEDI/ADOL 2012-10-05 00:00:00 Completed Megha Manybold - External HEPATITIS A- PEDI/ADOL 2012-10-05 00:00:00 Completed Megha Manybold - External HEPATITIS A- PEDI/ADOL 2012-10-05 00:00:00 Completed Megha Manybold - External HEPATITIS A- PEDI/ADOL 2012-10-05 00:00:00 Completed Megha Alold - External Havrix Intramuscular Suspension 720 EL U/0.5ML 2012-10-05 00:00:00 Completed [facility] Hepatitis B, Unspecified 2011-08-05 00:00:00 Completed Megha Seybold - External Hepatitis B, Unspecified 2011-08-05 00:00:00 Completed Megha Seybold - External Hepatitis B, Unspecified 2011-08-05 00:00:00 Completed Megha Seybold - External Hepatitis B, Unspecified 2011-08-05 00:00:00 Completed Megha Seybold - External Hepatitis B, Unspecified 2011-08-05 00:00:00 Completed Megha Seybold - External Hepatitis B, Unspecified 2011-08-05 00:00:00 Completed Megha Seybold - External Hepatitis B, Unspecified 2011-08-05 00:00:00 Completed Megha Seybold - External Hepatitis B, Unspecified 2011-08-05 00:00:00 Completed Megha Seybold - External Hepatitis B, Unspecified 2011-08-05 00:00:00 Completed Megha Seybold - External Hepatitis B, Unspecified 2011-08-05 00:00:00 Completed Megha Seybold - External Hep B, unspecified formulation 2011-08-05 00:00:00 Completed [facility] Hepatitis B, Unspecified 2010-12-31 00:00:00 Completed Megha Seybold - External Hepatitis B, Unspecified 2010-12-31 00:00:00 Completed Megha Seybold - External Hepatitis B, Unspecified 2010-12-31 00:00:00 Completed Megha Seybold - External Hepatitis B, Unspecified 2010-12-31 00:00:00 Completed Megha Seybold - External Hepatitis B, Unspecified 2010-12-31 00:00:00 Completed Megha Seybold - External Hepatitis B, Unspecified 2010-12-31 00:00:00 Completed Megha Seybold - External Hepatitis B, Unspecified 2010-12-31 00:00:00 Completed Mgeha Seybold - External Hepatitis B, Unspecified 2010-12-31 00:00:00 Completed Megha Seybold - External Hepatitis B, Unspecified 2010-12-31 00:00:00 Completed Megha Seybold - External Hepatitis B, Unspecified 2010-12-31 00:00:00 Completed Megha Seybold - External Hep B, unspecified formulation 2010-12-31 00:00:00 Completed [facility] Hepatitis B, Unspecified 2010-08-27 00:00:00 Completed Megha Seybold - External Tdap- (Boostrix, Adacel) 2010-08-27 00:00:00 Completed Megha Seybold - External Hepatitis B, Unspecified 2010-08-27 00:00:00 Completed Megha Seybold - External Tdap- (Boostrix, Adacel) 2010-08-27 00:00:00 Completed Megha Seybold - External Hepatitis B, Unspecified 2010-08-27 00:00:00 Completed Megha Seybold - External Tdap- (Boostrix, Adacel) 2010-08-27 00:00:00 Completed Megha Seybold - External Hepatitis B, Unspecified 2010-08-27 00:00:00 Completed Megha Seybold - External Tdap- (Boostrix, Adacel) 2010-08-27 00:00:00 Completed Megha Seybold - External Hepatitis B, Unspecified 2010-08-27 00:00:00 Completed Megha Seybold - External Tdap- (Boostrix, Adacel) 2010-08-27 00:00:00 Completed Megha Seybold - External Hepatitis B, Unspecified 2010-08-27 00:00:00 Completed Megha Seybold - External Tdap- (Boostrix, Adacel) 2010-08-27 00:00:00 Completed Megha Seybold - External Hepatitis B, Unspecified 2010-08-27 00:00:00 Completed Megha Seybold - External Hepatitis B, Unspecified 2010-08-27 00:00:00 Completed Megha Seybold - External Tdap- (Boostrix, Adacel) 2010-08-27 00:00:00 Completed Megha Seybold - External Tdap- (Boostrix, Adacel) 2010-08-27 00:00:00 Completed Megha Seybold - External Hepatitis B, Unspecified 2010-08-27 00:00:00 Completed Megha Seybold - External Tdap- (Boostrix, Adacel) 2010-08-27 00:00:00 Completed Megha Seybold - External Hepatitis B, Unspecified 2010-08-27 00:00:00 Completed Megha Seybold - External Tdap- (Boostrix, Adacel) 2010-08-27 00:00:00 Completed Megha Elmore - External Adacel Intramuscular Suspension 5-2-15.5 LF-MCG/0.5 2010-08-27 00:00:00 Completed [facility] Hep B, unspecified formulation 2010-08-27 00:00:00 Completed [facility] HEPATITIS A- PEDI/ADOL 2010-05-28 00:00:00 Completed Megha Elmore - External HEPATITIS A- PEDI/ADOL 2010-05-28 00:00:00 Completed Megha Elmore - External HEPATITIS A- PEDI/ADOL 2010-05-28 00:00:00 Completed Megha Elmore - External HEPATITIS A- PEDI/ADOL 2010-05-28 00:00:00 Completed Megha Elmore - External HEPATITIS A- PEDI/ADOL 2010-05-28 00:00:00 Completed Megha Elmore - External HEPATITIS A- PEDI/ADOL 2010-05-28 00:00:00 Completed Megha Elmore - External HEPATITIS A- PEDI/ADOL 2010-05-28 00:00:00 Completed Megha Elmore - External HEPATITIS A- PEDI/ADOL 2010-05-28 00:00:00 Completed Megha Elmore - External HEPATITIS A- PEDI/ADOL 2010-05-28 00:00:00 Completed Megha Elmore - External HEPATITIS A- PEDI/ADOL 2010-05-28 00:00:00 Completed Megha Elmore - External Havrix Intramuscular Suspension 720 EL U/0.5ML 2010-05-28 00:00:00 Completed [facility] Pneumococcal Conjugate 15 (Vaxneuvance) Unknown Completed Megha Elmore - External COVID-19 BIVALENT VACCINE MODERNA Unknown Completed Megha real - External Meningococcal Vaccine- Conjugate(Menactra) Unknown Completed Megha guy - External Hepatitis B, Unspecified Unknown Completed Megha Elmore - External HEPATITIS A- PEDI/ADOL Unknown Completed Megha Ovalle External Tdap- (Boostrix, Adacel) Unknown Completed Megha Elmore - External Influenza Virus Vaccine, Split, up to age 3 Unknown Completed Megha Elmore - External Td- Tetanus & Diphtheria Vaccine (age 7+ years) Unknown Completed Megha Seybol d - External Pneumococcal Vaccine, Polysaccharide Unknown Completed Megha Seybol d - External Influenza, Injectable, Mdck, Quadrivalent With Preservative Unknown Completed Megha Seybold - External Pneumococcal Conjugate 15 (Vaxneuvance) Unknown Completed Megha Seybold - External COVID-19 BIVALENT VACCINE MODERNA Unknown Completed Megha Seybo ld - External Meningococcal Vaccine- Conjugate(Menactra) Unknown Completed [facility] eybold - External Hepatitis B, Unspecified Unknown Completed Megha Seybold - External HEPATITIS A- PEDI/ADOL Unknown Completed Megha Seybold - External Tdap- (Boostrix, Adacel) Unknown Completed Megha Seybold - External Influenza Virus Vaccine, Split, up to age 3 Unknown Completed Megha Seybold - External Td- Tetanus & Diphtheria Vaccine (age 7+ years) Unknown Completed Megha Seybol d - External Pneumococcal Vaccine, Polysaccharide Unknown Completed Megha Seybol d - External Influenza, Injectable, Mdck, Quadrivalent With Preservative Unknown Completed Megha Seybold - External Pneumococcal Conjugate 15 (Vaxneuvance) [facility] BIVALENT VACCINE MODERNA Unknown Completed Megha Seybo ld - External Meningococcal Vaccine- Conjugate(Menactra) Unknown Completed Megha S eybold - External Hepatitis B, Unspecified Unknown Completed Megha Seybold - External HEPATITIS A- PEDI/ADOL Unknown Completed Megha Seybold - External Tdap- (Boostrix, Adacel) [facility] Influenza Virus Vaccine, Split, up to age 3 Unknown Completed Megha Seybold - External Td- Tetanus & Diphtheria Vaccine (age 7+ years) Unknown Completed Megha Seybol d - External Pneumococcal Vaccine, Polysaccharide Unknown Completed Megha Seybol d - External Influenza, Injectable, Mdck, Quadrivalent With Preservative Unknown Completed Megha Seybold - External Pneumococcal Conjugate 15 (Vaxneuvance) Unknown Completed Megha Seybold - External COVID-19 BIVALENT VACCINE MODERNA Unknown Completed Megha Seybo ld - External Meningococcal Vaccine- Conjugate(Menactra) Unknown Completed Megha S eybold - External Hepatitis B, Unspecified Unknown Completed Megha Seybold - External HEPATITIS A- PEDI/ADOL Unknown Completed Megha Seybold - External Tdap- (Boostrix, Adacel) Unknown Completed Megha Manybold - External Influenza Virus Vaccine, Split, up to age 3 Unknown Completed Megha Seybold - External Td- Tetanus & Diphtheria Vaccine (age 7+ years) Unknown Completed Megha Manybol d - External Pneumococcal Vaccine, Polysaccharide Unknown Completed Megha Seybol d - External Influenza, Injectable, Mdck, Quadrivalent With Preservative Unknown Completed Megha Seybold - External Pneumococcal Conjugate 15 (Vaxneuvance) Unknown Completed Megha Seybold - External COVID-19 BIVALENT VACCINE MODERNA Unknown Completed Megha Manybo ld - External Meningococcal Vaccine- Conjugate(Menactra) Unknown Completed Megha Brooks eybold - External Hepatitis B, Unspecified Unknown Completed Megha Seybold - External HEPATITIS A- PEDI/ADOL Unknown Completed Megha Manybold - External Tdap- (Boostrix, Adacel) Unknown Completed Megha Manybold - External Influenza Virus Vaccine, Split, up to age 3 Unknown Completed Megha Seybold - External Td- Tetanus & Diphtheria Vaccine (age 7+ years) Unknown Completed Megha Manybol d - External Pneumococcal Vaccine, Polysaccharide Unknown Completed Megha ybol d - External Influenza, Injectable, Mdck, Quadrivalent With Preservative Unknown Completed Megha Seybold - External COVID-19 Vaccine(Deliveroo)(fall 2022)(12yrs+) Unknown Completed Megha Manybold - External Pneumococcal Conjugate 15 (Vaxneuvance) Unknown Completed Megha ybold - External COVID-19 BIVALENT VACCINE MODERNA Unknown Completed Megha Manybo ld - External Meningococcal Vaccine- Conjugate(Menactra) Unknown Completed Megha Brooks eybold - External Hepatitis B, Unspecified Unknown Completed Megha Seybold - External HEPATITIS A- PEDI/ADOL Unknown Completed Megha Seybold - External Tdap- (Boostrix, Adacel) Unknown Completed Megha Seybold - External Influenza Virus Vaccine, Split, up to age 3 Unknown Completed Megha Seybold - External Td- Tetanus & Diphtheria Vaccine (age 7+ years) Unknown Completed Megha Seybol d - External Pneumococcal Vaccine, Polysaccharide Unknown Completed Megha Seybol d - External Influenza, Injectable, Mdck, Quadrivalent With Preservative Unknown Completed Megha Seybold - External COVID-19 Vaccine(Pfizer)(fall 2022)(12yrs+) Unknown Completed Megha Seybold - External Pneumococcal Conjugate 15 (Vaxneuvance) Unknown Completed Megha Seybold - External COVID-19 BIVALENT VACCINE MODERNA Unknown Completed Megha Seybo ld - External Meningococcal Vaccine- Conjugate(Menactra) Unknown Completed Megha Brooks eybold - External Hepatitis B, Unspecified Unknown Completed Megha Seybold - External HEPATITIS A- PEDI/ADOL Unknown Completed Megha Seybold - External Tdap- (Boostrix, Adacel) Unknown Completed Megha Seybold - External Influenza Virus Vaccine, Split, up to age 3 Unknown Completed Megha Seybold - External Td- Tetanus & Diphtheria Vaccine (age 7+ years) Unknown Completed Megha Seybol d - External Pneumococcal Vaccine, Polysaccharide Unknown Completed Megha Seybol d - External Influenza, Injectable, Mdck, Quadrivalent With Preservative Unknown Completed Megha Seybold - External COVID-19 Vaccine(Pfizer)(fall 2022)(12yrs+) Unknown Completed Megha Seybold - External Pneumococcal Conjugate 15 (Vaxneuvance) Unknown Completed Megha Seybold - External COVID-19 BIVALENT VACCINE MODERNA Unknown Completed Megha Seybo ld - External Meningococcal Vaccine- Conjugate(Menactra) Unknown Completed Megha Brooks eybold - External Hepatitis B, Unspecified Unknown Completed Megha Seybold - External HEPATITIS A- PEDI/ADOL Unknown Completed Megha Seybold - External Tdap- (Boostrix, Adacel) Unknown Completed Megha Seybold - External Influenza Virus Vaccine, Split, up to age 3 Unknown Completed Megha Seybold - External Td- Tetanus & Diphtheria Vaccine (age 7+ years) Unknown Completed Megha Seybol d - External Pneumococcal Vaccine, Polysaccharide Unknown Completed Megha Seybol d - External Influenza, Injectable, Mdck, Quadrivalent With Preservative Unknown Completed Megha Seybold - External COVID-19 Vaccine(Pfizer)(fall 2022)(12yrs+) Unknown Completed Megha Seybold - External Pneumococcal Conjugate 15 (Vaxneuvance) Unknown Completed Megha Seybold - External COVID-19 BIVALENT VACCINE MODERNA Unknown Completed Megha Seybo ld - External Meningococcal Vaccine- Conjugate(Menactra) Unknown Completed Megha gilbold - External Hepatitis B, Unspecified Unknown Completed Megha Elmore - External HEPATITIS A- PEDI/ADOL Unknown Completed Megha Elmore - External Tdap- (Boostrix, Adacel) Unknown Completed Megha Elmore - External Influenza Virus Vaccine, Split, up to age 3 Unknown Completed Megha Elmore - External Td- Tetanus & Diphtheria Vaccine (age 7+ years) Unknown Completed Megha ng - External Pneumococcal Vaccine, Polysaccharide Unknown Completed Megha Alol hernandez - External Influenza, Injectable, Mdck, Quadrivalent With Preservative Unknown Completed Megha Elmore - External COVID-19 Vaccine(Deliveroo)(fall 2022)(12yrs+) Unknown Completed Megha Elmore - External Vital Signs Vital Name Observation Time Observation Value Comments S lore Systolic blood pressure 2024-05-03 15:11:00 118 mm[Hg] Meghamikki Alo ld - External Diastolic blood pressure 2024-05-03 15:11:00 78 mm[Hg] Meghamikki Alo ld - External Heart rate 2024-05-03 15:11:00 68 /min Levi dahl Semelissaold - External Body temperature 2024-05-03 15:11:00 36.56 Flor Meghamikki Elmore - External Respiratory rate 2024-05-03 15:11:00 20 /min Megha Seybold - External Body height 2024-05-03 15:11:00 165.1 cm Larissa jeffery Seybold - External Body weight 2024-05-03 15:11:00 107.616 kg Larissa jeffery Seybold - External BMI 2024-05-03 15:11:00 39.48 kg/m2 Larissa jeffery Seybold - External Oxygen saturation in Arterial blood by Pulse oximetry 2024-05-03 15:11:00 97 /min Meghamikki Alo ld - External Systolic blood pressure 2024-03-07 14:18:00 126 mm[Hg] Megha Manybo ld - External Diastolic blood pressure 2024-03-07 14:18:00 79 mm[Hg] Megha Seybo ld - External Heart rate 2024-03-07 14:18:00 65 /min Kelse y Seybold - External Body temperature 2024-03-07 14:18:00 36.89 Flor Megha Seybold - External Respiratory rate 2024-03-07 14:18:00 18 /min Megha Seybold - External Body height 2024-03-07 14:18:00 165.1 cm Larissa ey Seybold - External Body weight 2024-03-07 14:18:00 108.41 kg Larissa ey Seybold - External BMI 2024-03-07 14:18:00 39.77 kg/m2 Larissa ey Seybold - External Oxygen saturation in Arterial blood by Pulse oximetry 2024-03-07 14:18:00 97 /min Megha Seybo ld - External Systolic blood pressure 2023-12-28 18:55:00 130 mm[Hg] Megha Seybo ld - External Diastolic blood pressure 2023-12-28 18:55:00 68 mm[Hg] Megha Seybo ld - External Heart rate 2023-12-28 18:55:00 78 /min Kelse y Seybold - External Body temperature 2023-12-28 18:55:00 37.28 Flor Megha Seybold - External Respiratory rate 2023-12-28 18:55:00 15 /min Megha Seybold - External Body height 2023-12-28 18:55:00 165.1 cm Larissa ey Seybold - External Body weight 2023-12-28 18:55:00 109.317 kg Larissa ey Seybold - External BMI 2023-12-28 18:55:00 40.10 kg/m2 Larissa ey Seybold - External Oxygen saturation in Arterial blood by Pulse oximetry 2023-12-28 18:55:00 100 /min Megha Seybo ld - External Systolic blood pressure 2023-11-30 19:23:00 126 mm[Hg] Megha Seybo ld - External Diastolic blood pressure 2023-11-30 19:23:00 84 mm[Hg] Megha Seybo ld - External Heart rate 2023-11-30 19:23:00 78 /min Kelse y Seybold - External Body temperature 2023-11-30 19:23:00 36.72 Flor Megha Seybold - External Respiratory rate 2023-11-30 19:23:00 18 /min Megha Seybold - External Body height 2023-11-30 19:23:00 165.1 cm Larissa ey Seybold - External Body weight 2023-11-30 19:23:00 109.77 kg Larissa ey Seybold - External BMI 2023-11-30 19:23:00 40.27 kg/m2 Larissa ey Seybold - External Oxygen saturation in Arterial blood by Pulse oximetry 2023-11-30 19:23:00 98 /min Megha Seybo ld - External Systolic blood pressure 2023-09-15 15:45:00 124 mm[Hg] Megha Seybo ld - External Diastolic blood pressure 2023-09-15 15:45:00 81 mm[Hg] Megha Seybo ld - External Heart rate 2023-09-15 15:45:00 79 /min Kelse y Seybold - External Body temperature 2023-09-15 15:45:00 36.56 Flor Megha Seybold - External Respiratory rate 2023-09-15 15:45:00 20 /min Megha Seybold - External Body height 2023-09-15 15:45:00 165.1 cm Larissa ey Seybold - External Body weight 2023-09-15 15:45:00 110.224 kg Larissa ey Seybold - External BMI 2023-09-15 15:45:00 40.44 kg/m2 Larissa ey Seybold - External Oxygen saturation in Arterial blood by Pulse oximetry 2023-09-15 15:45:00 99 /min Megha Seybo ld - External Systolic blood pressure 2023-05-07 19:32:00 119 mm[Hg] Megha Seybo ld - External Diastolic blood pressure 2023-05-07 19:32:00 72 mm[Hg] Megha Seybo ld - External Heart rate 2023-05-07 19:32:00 68 /min Kelse y Seybold - External Body temperature 2023-05-07 19:32:00 36.61 Flor Megha Seybold - External Respiratory rate 2023-05-07 19:32:00 16 /min Megha Seybold - External Body height 2023-05-07 19:32:00 165.1 cm Larissa ey Seybold - External Body weight 2023-05-07 19:32:00 110.224 kg Larissa ey Seybold - External BMI 2023-05-07 19:32:00 40.44 kg/m2 Larissa ey Seybold - External Oxygen saturation in Arterial blood by Pulse oximetry 2023-05-07 19:32:00 99 /min Megha Seybo ld - External Systolic blood pressure 2023-04-20 14:26:00 121 mm[Hg] Megha Seybo ld - External Diastolic blood pressure 2023-04-20 14:26:00 86 mm[Hg] Megha Seybo ld - External Heart rate 2023-04-20 14:26:00 65 /min Kelse y Seybold - External Body temperature 2023-04-20 14:26:00 36.72 Flor Megha Seybold - External Respiratory rate 2023-04-20 14:26:00 16 /min Megha Seybold - External Body height 2023-04-20 14:26:00 165.1 cm Larissa ey Seybold - External Body weight 2023-04-20 14:26:00 110.224 kg Larissa ey Seybold - External BMI 2023-04-20 14:26:00 40.44 kg/m2 Larissa ey Seybold - External Systolic blood pressure 2023-02-23 18:36:00 128 mm[Hg] Megha Seybo ld - External Diastolic blood pressure 2023-02-23 18:36:00 62 mm[Hg] Megha Seybo ld - External Heart rate 2023-02-23 18:36:00 60 /min Kelse y Seybold - External Body temperature 2023-02-23 18:36:00 36.78 Flor Megha Seybold - External Respiratory rate 2023-02-23 18:36:00 12 /min Megha Seybold - External Body height 2023-02-23 18:36:00 165.1 cm Larissa ey Seybold - External Body weight 2023-02-23 18:36:00 108.228 kg Larissa ey Seybold - External BMI 2023-02-23 18:36:00 39.71 kg/m2 Larissa ey Seybold - External Systolic blood pressure 2023-02-19 19:56:00 120 mm[Hg] Megha Seybo ld - External Diastolic blood pressure 2023-02-19 19:56:00 70 mm[Hg] Megha Seybo ld - External Heart rate 2023-02-19 19:56:00 80 /min Kelse y Seybold - External Body temperature 2023-02-19 19:56:00 37.56 Flor Megha Seybold - External Respiratory rate 2023-02-19 19:56:00 14 /min Megha Seybold - External Body height 2023-02-19 19:56:00 165.1 cm Larissa ey Seybold - External Body weight 2023-02-19 19:56:00 109.77 kg Larissa ey Seybold - External BMI 2023-02-19 19:56:00 40.27 kg/m2 Larissa ey Seybold - External Oxygen saturation in Arterial blood by Pulse oximetry 2023-02-19 19:56:00 99 /min Megha Manybo ld - External Systolic blood pressure 2023-02-13 15:08:00 113 mm[Hg] Megha Seybo ld - External Diastolic blood pressure 2023-02-13 15:08:00 78 mm[Hg] Megha Manybo ld - External Heart rate 2023-02-13 15:08:00 78 /min Anshulse y Seybold - External Body temperature 2023-02-13 15:08:00 36.94 Flor Megha Manybold - External Respiratory rate 2023-02-13 15:08:00 16 /min Megha Seybold - External Body height 2023-02-13 15:08:00 165.1 cm Larissa ey Seybold - External Body weight 2023-02-13 15:08:00 107.956 kg Larissa ey Seybold - External BMI 2023-02-13 15:08:00 39.61 kg/m2 Larissa ey Seybold - External Systolic blood pressure 2023-01-23 13:55:00 112 mm[Hg] Megha Seybo ld - External Diastolic blood pressure 2023-01-23 13:55:00 71 mm[Hg] Megha Seybo ld - External Heart rate 2023-01-23 13:55:00 59 /min Kelse y Seybold - External Body temperature 2023-01-23 13:55:00 36.72 Flor Megha Seybold - External Respiratory rate 2023-01-23 13:55:00 16 /min Megha Seybold - External Body height 2023-01-23 13:55:00 165.1 cm Larissa ey Seybold - External Body weight 2023-01-23 13:55:00 108.228 kg Larissa ey Seybold - External BMI 2023-01-23 13:55:00 39.71 kg/m2 Larissa ey Seybold - External Systolic blood pressure 2023-01-12 20:46:00 126 mm[Hg] Megha Seybo ld - External Diastolic blood pressure 2023-01-12 20:46:00 74 mm[Hg] Megha Seybo ld - External Heart rate 2023-01-12 20:46:00 74 /min Kelse y Seybold - External Body temperature 2023-01-12 20:46:00 36.89 Flor Megha Seybold - External Respiratory rate 2023-01-12 20:46:00 15 /min Megha Seybold - External Body height 2023-01-12 20:46:00 165.1 cm Larissa ey Seybold - External Body weight 2023-01-12 20:46:00 108.41 kg Larissa ey Seybold - External BMI 2023-01-12 20:46:00 39.77 kg/m2 Larissa ey Seybold - External Oxygen saturation in Arterial blood by Pulse oximetry 2023-01-12 20:46:00 99 /min Megha Seybo ld - External Systolic blood pressure 2022-12-16 20:40:00 138 mm[Hg] Megha Seybo ld - External Diastolic blood pressure 2022-12-16 20:40:00 85 mm[Hg] Megha Seybo ld - External Heart rate 2022-12-16 20:40:00 109 /min Kelse y Seybold - External Body temperature 2022-12-16 20:40:00 37.67 Flor Megha Seybold - External Respiratory rate 2022-12-16 20:40:00 14 /min Megha Seybold - External Body height 2022-12-16 20:40:00 165.1 cm Larissa ey Seybold - External Body weight 2022-12-16 20:40:00 108.863 kg Larissa ey Seybold - External BMI 2022-12-16 20:40:00 39.94 kg/m2 Larissa ey Seybold - External Oxygen saturation in Arterial blood by Pulse oximetry 2022-12-16 20:40:00 99 /min Megha Alo ld - External Systolic blood pressure 2022-12-10 20:45:00 142 mm[Hg] Megha Seybo ld - External Diastolic blood pressure 2022-12-10 20:45:00 86 mm[Hg] Megha Seybo ld - External Heart rate 2022-12-10 20:45:00 83 /min Kel y Seybold - External Body temperature 2022-12-10 20:45:00 36.83 Flor Megha Seybold - External Respiratory rate 2022-12-10 20:45:00 20 /min Megha Seybold - External Body height 2022-12-10 20:45:00 165.1 cm Larissa ey Seybold - External Body weight 2022-12-10 20:45:00 109.135 kg Larissa ey Seybold - External BMI 2022-12-10 20:45:00 40.04 kg/m2 Larissa ey Seybold - External Oxygen saturation in Arterial blood by Pulse oximetry 2022-12-10 20:45:00 99 /min Megha Alo ld - External Diastolic blood pressure 2022-09-22 08:45:34 88 mm[Hg] [facility] Systolic blood pressure 2022-09-22 08:45:34 127 mm[Hg] [facility] 2022-09-22 08:45:34 16 /min [facility] pulse rate 2022-09-22 08:45:34 66 /min [facility] 234 beds at the [facility] temperature site 2022-09-22 08:45:34 oral [facility] temperature E&M 2022-09-22 08:45:34 98.7 [degF] [facility] BMI (body mass index) percentile 2022-09-22 08:45:34 n/a [facility] family [facility] Body Mass Index (Ratio) 2022-09-22 08:45:34 38.45 kg/m2 [facility] weight E&M 2022-09-22 08:45:34 230.25 [lb_av] [facility] E&M 2022-09-22 08:45:34 104.66 kg [facility] height in centimeters E&M 2022-09-22 08:45:34 [facility] in [facility] E&M 2022-08-26 12:51:27 165.10 cm [facility] temperature site 2022-07-29 13:54:51 [facility] Diastolic blood pressure 2022-07-29 13:54:51 59 mm[Hg] [facility] Systolic blood pressure 2022-07-29 13:54:51 111 mm[facility]Hg[facility] rate E&M 2022-07-29 13:54:51 16 /min [facility] pulse rate 2022-07-29 13:54:51 56 /min [facility] temperature E&M 2022-07-29 13:54:51 98.2 [degF] [facility] BMI (body mass index) percentile 2022-07-29 13:54:51 n/a [facility] Body Mass Index (Ratio) 2022-07-29 13:54:51 37.74 kg[facility]m2 [facility] weight E&M 2022-07-29 13:54:51 226 [lb_av] [facility] weight in kilograms E&M 2022-07-29 13:54:51 [facility] height in [facility] E&M 2022-07-29 13:54:51 [facility] Procedure Date / Time Performed Performing Clinician Source WET PREP 2023-04-20 14:53:00 Natty Cartyybold - External Vision 2022-12-10 10:45:33 Bolivar Nix [facility] Dental - Internal 2022-12-10 10:45:33 Bolivar Nix [facility] Primary Care - Assesment-Brief - SLW 2022-12-10 10:40:27 Sunni Gallo [facility] Primary Care Service Linkage 2022-12-10 10:40:27 Sabino Sunni [facility] Primary Care Service Linkage 2022-12-10 08:16:02 Sunni Gallo [facility] Dental - Internal 2022-09-22 12:26:38 [facility] 2022-09-22 12:26:38 Bolivar NixCounts include 234 beds at the [facility] Vaccines Ordered - Print Consent/Declination Forms 2022-09-22 12:22:56 Dinah [facility] Venipuncture 2022-07-29 14:27:36 Sabino Isbell [facility] Encounters Start Date/Time End Date/Time Encounter Type Admission Type Attending [facility] Care Department Encounter ID Source 2023-05-27 11:43:06 Outpatient lc.keljayne [facility] [id number] [facility] 2023-04-02 12:09:09 Outpatient lc.zachery [facility] [id number] [facility] 2023-01-26 16:29:03 Outpatient lc.mana s [facility] [id number] [facility] 2022-12-17 14:59:06 Outpatient lc.mana s [facility] [id number] [facility] 2022-12-10 10:41:03 Outpatient lc.mana s [facility] [id number] [facility] 2022-12-04 09:49:03 Outpatient lc.mana s [facility] [id number] [facility] 2022-12-03 09:25:22 Outpatient lc.mana s [facility] [id number] [facility] 2022-12-02 14:45:08 Outpatient lc.mana s [facility] [id number] [facility] 2022-11-25 14:21:04 Outpatient lc.mana s [facility] [id number] [facility] 2022-11-18 09:37:04 Outpatient lc.mana brooks [facility] [id number] [facility] 2022-11-07 13:31:05 Outpatient lc.mana brooks [facility] [id number] [facility] 2022-10-29 15:43:02 Outpatient lc.mana brooks [facility] [id number] [facility] 2022 09:11:05 Outpatient lc.mana brooks [facility] [id number] [facility] 2022-10-14 08:37:08 Outpatient lc.mana brooks [facility] [id number] [facility] 2022-10-10 13:43:05 Outpatient lc.mana brooks [facility] [id number] [facility] 2022-10-06 12:42:44 Outpatient lc.mana brooks [facility] [id number] [facility] 2022-10-03 18:30:49 Outpatient lc.mana brooks [facility] [id number] [facility] 2022-08-26 15:01:05 Outpatient lc.mana brooks [facility] [id number] [facility] 2022-08-26 00:16:29 Outpatient lc.april [facility] [id number] [facility] 2022-08-04 13:29:08 Outpatient lc.april [facility] [id number] [facility] 2022-08-01 16:15:05 Outpatient lc.april [facility] [id number] [facility] 2022-07-30 15:45:08 Outpatient lc.april [facility] [id number] [facility] 2022-07-28 09:55:18 Outpatient [facility] [id number] [facility] 2024-09-27 14:45:00 2024-09-27 14:45:00 Outpatient PREZACORY BrooksMIKKI LAMAS [id number] [facility] 2024-09-05 15:30:00 2024-09-05 15:30:00 Outpatient JOSE ILA GIANGJIM LAMAS [id number] [facility] 2024-08-08 00:00:00 2024-08-08 00:00:00 Outpatient PREZASCORY MEGHA LAMAS [id number] [facility] 2024-07-15 00:00:00 2024-07-15 00:00:00 Outpatient MD MEGHA BIANCHI [id number] [facility] 2024-07-14 00:00:00 2024-07-14 00:00:00 Outpatient PREZAMARLENY BrooksROMEO LAMAS [id number] [facility] 2024-07-14 00:00:00 2024-07-14 00:00:00 Outpatient JOSE GIANG DEBBASIM LAMAS [id number] [facility] 2024-07-07 15:30:00 2024-07-07 15:30:00 Outpatient PREZASCORY MEGHA LAMAS [id number] [facility] 2024-06-27 16:00:00 2024-06-27 16:00:00 Outpatient BINUJUAN PABLO MEGHA LAMAS [id number] [facility] 2024-06-03 00:00:00 2024-06-03 00:00:00 Outpatient MARISSAMARKOS [id number] Megha Seybold 2024-06-03 00:00:00 2024-06-03 00:00:00 Outpatient MEGHA LAMAS [id number] [facility]ha Seybold 2024-05-26 00:00:00 2024-05-26 00:00:00 Outpatient PREZAScar CORY LAMAS [id number] [facility] Seybold 2024-05-10 00:00:00 2024-05-10 00:00:00 Outpatient PREZAS CORY LAMAS [id number] Megha Seyb2024-05-05 15:12:22 2024-05-05 15:12:28 Outpatient HCN N [id number] [facility] 2024-05-04 00:00:00 2024-05-04 00:00:00 Outpatient MEGHA MEGHA [id number] [facility] 2024-05-03 10:50:00 2024-05-03 10:50:00 Outpatient LAB90 MEGHA LAMAS [id number] [facility] 2024-05-03 10:00:00 2024-05-03 10:00:00 Outpatient MARKOS ANN MEGHA LAMAS [id number] [facility] 2024-05-03 00:00:00 2024-05-03 00:00:00 Outpatient MARKOS ANN MEGHA LAMAS [id number] [facility] 2024-05-02 00:00:00 2024-05-02 00:00:00 Outpatient PREZAScar, CORY MEGHA LAMAS [id number] [facility] 2024-04-21 00:00:00 2024-04-21 00:00:00 Outpatient PREZAS, CORY MEGHA LAMAS [id number] [facility] 2024-04-19 08:40:00 2024-04-19 08:40:00 Outpatient LAB90 MEGHA LAMAS [id number] [facility] 2024-04-15 00:00:00 2024-04-15 00:00:00 Outpatient PREZAS, CORY MEGHA LAMAS [id number] [facility] 2024-04-08 00:00:00 2024-04-08 00:00:00 Outpatient PREZAS, CORYROMEO LAMAS [id number] [facility] 2024-03-24 00:00:00 2024-03-24 00:00:00 Outpatient MD MEGHA BIANCHI [id number] [facility] 2024-03-23 15:15:00 2024-03-23 15:15:00 Outpatient PREZAS, CORY LAMAS [id number] [facility] 2024-03-14 15:30:00 2024-03-14 15:30:00 Outpatient DORA-LATI PADMAJA, DEBBASIM LAMAS [id number] [facility] 2024-03-09 16:05:00 2024-03-09 16:05:00 Outpatient LAB90 MEGHA LAMAS [id number] Megha [facility] 2024-03-07 10:00:00 2024-03-07 10:00:00 Outpatient PREZAS, CORY MEGHA LAMAS [id number] [facility] 2024-02-17 14:00:00 2024-02-17 14:00:00 Outpatient PREZASCORY MEGHA LAMAS [id number] [facility] 2024-02-02 00:00:00 2024-02-02 00:00:00 Outpatient PREZAS, CORY MEGHA LAMAS [id number] [facility] 2024-01-29 14:05:00 2024-01-29 14:05:00 Outpatient LAB90 MEGHA LAMAS [id number] [facility] 2023-12-28 14:15:00 2023-12-28 14:15:00 Outpatient PREZAS, CORY MEGHA LAMAS [id number] [facility] 2023-12-15 09:00:00 2023-12-15 09:00:00 Outpatient PREZAS, CORY MEGHA LAMAS [id number] [facility] 2023-11-30 14:30:00 2023-11-30 14:30:00 Outpatient MARKOS ANN [id number] [facility] 2023-10-28 09:15:00 2023-10-28 09:15:00 Outpatient OU, NATTY LAMAS [id number] [facility] 2023-10-22 15:45:00 2023-10-22 15:45:00 Outpatient JUAN PABLO SCHMID [id number] [facility] 2023-09-25 10:00:00 2023-09-25 10:00:00 Outpatient DORA-LATI PADMAJA, DEB LAMAS [id number] [facility] 2023-09-22 14:00:00 2023-09-22 14:00:00 Outpatient LAB90 MEGHA LAMAS [id number] [facility] Seybcande 2023-09-18 14:00:00 2023-09-18 14:00:00 Outpatient YUE GUIDRY MEGHA LAMAS [id number] [facility] Many[facility] 2023-09-18 00:00:00 2023-09-18 00:00:00 Outpatient KRISTALENIYUE KONG MEGHA LAMAS [id number] [facility] 2023-09-17 00:00:00 2023-09-17 00:00:00 Outpatient DORA-LATI PADMAJA, DEB LAMAS [id number] [facility] 2023-09-16 00:00:00 2023-09-16 00:00:00 Outpatient PREZAS, CORY MEGHA LAMAS [id number] [facility] 2023-09-15 10:45:00 2023-09-15 10:45:00 Outpatient PREZAS CORYROMEO LAMAS [id number] [facility] 2023-09-15 10:10:00 2023-09-15 10:10:00 Outpatient LABOni MEGHA LAMAS [id number] [facility] 2023-09-03 00:00:00 2023-09-03 00:00:00 Outpatient DORA-LATI PADMAJA, DEBBASIM LAMAS [id number] [facility] 2023-08-25 11:30:00 2023-08-25 11:30:00 Outpatient DORA-LATI PADMAJA, DEBBASIM LAMAS [id number] [facility] 2023-08-18 00:00:00 2023-08-18 00:00:00 Outpatient PREZAS CORY LAMAS [id number] Megha Seybold 2023-08-18 00:00:00 2023-08-18 00:00:00 Outpatient MD MEGHA BIANCHI [id number] Megha Seybold 2023-08-10 14:00:00 2023-08-10 14:00:00 Outpatient PREZASCORY [id number] Megha Seybold 2023-08-07 08:30:00 2023-08-07 08:30:00 Outpatient PREZAS, CORY REALSEY [id number] [facility] 2023-07-20 00:00:00 2023-07-20 00:00:00 Outpatient PREZAS, CORY LAMAS [id number] [facility] 2023-07-15 16:00:00 2023-07-15 16:00:00 Outpatient PREZAS, CORY LAMAS MEGHA [id number] [facility] 2023-06-29 00:00:00 2023-06-29 00:00:00 Outpatient PREZAS, CORY LAMAS MEGHA [id number] [facility] 2023-06-25 11:20:00 2023-06-25 11:20:00 Outpatient NOCK, RAJNI LAMAS MEGHA [id number] [facility] 2023-06-23 11:20:00 2023-06-23 11:20:00 Outpatient NOCK, RAJNI LAMAS MEGHA [id number] [facility] 2023-06-22 00:00:00 2023-06-22 00:00:00 Outpatient PREZAS, CORY L[id number] [facility] 16:20:00 2023-06-19 16:20:00 Outpatient NOCK, RAJNI LAMAS [facility] [id number] [facility] 10:20:00 2023-06-19 10:20:00 Outpatient NOCK, RAJNI LAMAS MEGHA [id number] [facility] 2023-06-19 00:00:00 2023-06-19 00:00:00 Outpatient PREZAS, CORY LAMAS MEGHA [id number] [facility] 2023-06-18 11:30:00 2023-06-18 11:30:00 Outpatient BINUJUAN PABLO MEGHA [id number] [facility] 2023-06-18 11:00:00 2023-06-18 11:00:00 Outpatient LABOni MEGHA LAMAS [id number] [facility] 2023-06-18 09:30:2023-06-18 09:30:00 Outpatient MACARIO AGUILAR MEGHA LAMAS [id number] [facility] 2023-06-17 00:00:00 2023-06-17 00:00:00 Outpatient PREZASCORY MEGHA [id number] [facility] 2023-06-01 09:15:00 2023-06-01 09:15:00 Outpatient PREZASCORY MEGHA [id number] [facility] 2023-05-22 15:15:00 2023-05-22 15:15:00 Outpatient PREZASCORY MEGHA LAMAS [id number] [facility] 2023-05-19 11:00:00 2023-05-19 11:00:00 Outpatient MEGHA LAMAS [id number] [facility] 2023-05-19 00:00:00 2023-05-19 00:00:00 Outpatient MD MEGHA BIANCHI [id number] [facility] 2023-05-19 00:00:00 2023-05-19 00:00:00 Outpatient PREZASCORY MEGHA LAMAS [id number] [facility] 2023-05-10 00:00:00 2023-05-10 00:00:00 Outpatient PREZASCORY MEGHA MEGHA [id number] [facility] 2023-05-08 00:00:00 2023-05-08 00:00:00 Outpatient PREZASCORY MEGHA LAMAS [id number] [facility] 2023-05-07 15:15:00 2023-05-07 15:15:00 Outpatient LABOni MEGHA LAMAS [id number] [facility] 2023-05-07 14:45:00 2023-05-07 14:45:00 Outpatient PREZASCORY MEGHA LAMAS [id number] [facility] 2023-05-05 00:00:00 2023-05-05 00:00:00 Outpatient MD MEGHA BIANCHI [id number] [facility] 2023-05-04 14:15:00 2023-05-04 14:15:00 Outpatient OU, NATTY MEGHA LAMAS [id number] [facility] 2023-04-27 08:30:00 2023-04-27 08:30:00 Outpatient MEGHA LAMAS [id number] [facility]ha Seybold 2023-04-20 10:30:00 2023-04-20 10:30:00 Outpatient OU, NATTY MEGHA LAMAS [id number] [facility]ha Seybold 2023-04-10 00:00:00 2023-04-10 00:00:00 Outpatient OU, NATTY MEGHA LAMAS [id number] [facility] 2023-03-31 12:00:00 2023-03-31 12:00:00 Outpatient EMELYN BONNER [id number] [facility] 2023-03-25 15:30:00 2023-03-25 15:30:00 Outpatient REYNA CROCKETT [id number] [facility] 2023-03-20 09:45:00 2023-03-20 09:45:00 Outpatient OU, NATTY MEGHA LAMAS [id number] [facility] 2023-03-16 10:45:00 2023-03-16 10:45:00 Outpatient MEGHA LAMAS [id number] [facility] 2023-03-04 00:00:00 2023-03-04 00:00:00 Outpatient MD MEGHA BIANCHI [id number] [facility] 2023-03-02 09:00:00 2023-03-02 09:00:00 Outpatient JACLYN REAL [id number] Megha Seybold 2023-03-02 00:00:00 2023-03-02 00:00:00 Outpatient EYAD WHEELER [id number] [facility]ha Seybold 2023-02-24 16:00:00 2023-02-24 16:00:00 Outpatient MEGHA LAMAS [id number] [facility] Seybcande 2023-02-23 15:15:00 2023-02-23 15:15:00 Outpatient [facility] MEGHA LAMAS [id number] Megha Seybold 2023-02-23 14:00:00 2023-02-23 14:00:00 Outpatient DORA-LINDA PADMAJA, DEBBASIM LAMAS [id number] [facility] Seybcande 2023-02-19 15:00:00 2023-02-19 15:00:00 Outpatient PREZAS, CORY MEGHA LAMAS [id number] Megha Seybold 2023-02-13 10:00:00 2023-02-13 10:00:00 Outpatient OU, NATTY MEGHA LAMAS [id number] [facility] Seybcande 2023-02-03 00:00:00 2023-02-03 00:00:00 Outpatient DORA-LATI PADMAJA, DEBBASIM LAMAS [id number] Megha ybcande 2023-02-02 00:00:00 2023-02-02 00:00:00 Outpatient MD MEGHA BIANCHI [id number] [facility] 2023-01-29 00:00:00 2023-01-29 00:00:00 Outpatient PREZAS, CORYROMEO LAMAS [id number] Megha Seybold 2023-01-23 10:00:00 2023-01-23 10:00:00 Outpatient OU, NATTY MEGHA LAMAS [id number] [facility] Seybold 2023-01-21 08:00:00 2023-01-21 08:00:00 Outpatient JACLYN REAL [id number] [facility]ha Seybold 2023-01-19 14:20:00 2023-01-19 14:20:00 Outpatient LABOni LAMAS [id number] Megha Seybold 2023-01-19 00:00:00 2023-01-19 00:00:00 Outpatient PREZAS, CORY LAMAS [id number] [facility] Seybold 2023-01-12 16:00:00 2023-01-12 16:00:00 Outpatient PREZAS, CORY LAMAS [id number] [facility] Seybold 2023-01-12 08:00:00 2023-01-12 08:00:00 Outpatient AHMED, JACLYN MEGHA LAMAS [id number] [facility] 2022-12-29 08:00:00 2022-12-29 08:00:00 Outpatient JACLYN REALSEY [id number] [facility] 2022-12-22 00:00:00 2022-12-22 00:00:00 Outpatient CORY MAX MEGHA [id number] [facility] 2022-12-16 15:30:00 2022-12-16 15:30:00 Outpatient PREZASCORY MEGHA [id number] [facility] 2022-12-11 00:00:00 2022-12-11 00:00:00 Outpatient PREZASCORY MEGHA [id number] [facility] 2022-12-10 14:45:00 2022-12-10 14:45:00 Outpatient TATIANAZACORY Brooks MEGHA [id number] [facility] 2022-09-22 00:00:00 2022-09-22 00:00:00 In-person encounter Bolivar Nix Anthony Jimenez, Lesley [place] [address] [facility] [id number] [facility] 2022-09-22 00:00:00 2022-09-22 00:00:00 In-person encounter Bolivar Nix Anthony Jimenez, Lesley [place] [address] Adult Medicine Encounter/ [id number] [facility] 2022-08-26 00:00:00 2022-08-26 00:00:00 In-person encounter Bolivar Nix Lydia Valdez, Andrea Duarte, Maria [facility] Adult Medicine Encounter/ [id number] [facility] 2022-08-15 00:00:00 2022-08-15 00:00:00 In-person encounter Sabino Isbell [facility] Adult Medicine Encounter/ [id number] [facility] 00:00:00 2022-07-29 00:00:00 In-person encounter Sabino Isbell, Anderson Hagen, Delilah [facility] Medicine Encounter/ [id number] [facility] 2022-07-29 00:00:00 2022-07-29 00:00:00 In-person encounter Sabino Isbell, Cassidy Monets, Anderson Diaz, Andrei Hagen, Delilah [facility] Medicine [id number] [facility] Results Test Description Test Time Test Comments Results Result Co mments Source [facility] [id number] 10:44:00* Test Item Value Reference Range Interpretation Comme nts bacteria, urine microscopy ( test code = 5769-5) NONE SEEN NONE SEEN N [facility] Hospitalsquamous epithelial [id number] 10:44:00* Test Item Value Reference Range Interpretation Comme nts squamous epithelial cells (test code = 4507) NONE SEEN /HPF See_Comment N [Automated messa ge] The system which generated this result transmitted reference range: < OR = 5. The reference range was not used to interpret this result as normal/abnormal. [facility]RBC, [id number] 10:44:00* Test Item Value Reference Range Interpretation Comme nts RBC, Urine (test code = 96275-0) NONE SEEN /HPF See_Comment N [Automated messa ge] The system which generated this result transmitted reference range: < OR = 2. The reference range was not used to interpret this result as normal/abnormal. [facility]WBC urine on [id number] 10:44:00* Test Item Value Reference Range Interpretation Comme nts WBC urine on microscopy (test code = 1016) NONE SEEN /HPF See_Comment N [Automated messa ge] The system which generated this result transmitted reference range: < OR = 5. The reference range was not used to interpret this result as normal/abnormal. [facility] Hospitalleukocyte esterase, urine, by [id number] 10:44:00 * Test Item Value Reference Range Interpretation Comme nts leukocyte esterase, urine, b y dipstick (test code = 5799-2) NEGATIVE NEGATIVE N [facility] Hospitalnitrite, urine, [id number] 10:44:00* Test Item Value Reference Range Interpretation Comme nts nitrite, urine, semiquantita tive (test code = 5802-4) NEGATIVE NEGATIVE N [facility] Hospitalprotein, urine, semiquantitative (dipstick)2022 10:44:00* Test Item Value Reference Range Interpretation Comme nts protein, urine, semiquantita tive (dipstick) (test code = 1753-3) NEGATIVE NEGATIVE N [facility] Hospitaloccult blood, stool (E&M)2022 10:44:00* Test Item Value Reference Range Interpretation Comme nts occult blood, stool (E&M) (t est code = 2335-8) NEGATIVE NEGATIVE N [facility] Hospitalketones, urine, by test [id number] 10:44:00* Test Item Value Reference Range Interpretation Comme nts ketones, urine, by test stri p (test code = 5797-6) NEGATIVE NEGATIVE N [facility] Hospitalbilirubin, [id number] 10:44:00* Test Item Value Reference Range Interpretation Comme nts bilirubin, urine (test code = 5770-3) NEGATIVE NEGATIVE [facility], [facility], [id number] 10:44:00* Test Item Value Reference Range Interpretation Comme nts glucose, urine, semiquantita tive (test code = 5792-7) NEGATIVE NEGATIVE [facility] HealthpH, urine, [id number] 10:44:00* Test Item Value Reference Range Interpretation Comme nts pH, urine, semiquantitative (test code = 5803-2) 6.0 (unknown unit) 5.0-8.0 [facility] Healthspecific gravity, [id number] 10:44:00* Test Item Value Reference Range Interpretation Comme nts specific gravity, urine (test code = 5811-5) 1.009 (unknown unit) 1.001-1.035 N [facility] Hospitalappearance, [id number] 10:44:00* Test Item Value Reference Range Interpretation Comme nts appearance, urine (test code = 5767-9) CLEAR CLEAR N [facility] Hospitalurine [id number] 10:44:00* Test Item Value Reference Range Interpretation Comme nts urine color (test code = 5778-6) YELLOW YELLOW N [facility] HospitalHIV-1RNA, serum, by PCR, miurtegfxowp6272-15-56 13:16:00 * Test Item Value Reference Range Interpretation Comme nts HIV-1RNA, serum, by PCR, quantitative (test code = 73982-0) NOT DETECTED copies/mL NOT DETECTED N [facility] Hospitalalpha-1 fetoprotein tumor marker, serum/[id number] 13:14:00* Test Item Value Reference Range Interpretation Comme nts alpha-1 fetoprotein tumor ma rker, serum/plasma (test code = 4300) 1.7 ng/mL N [facility] Hospitalalanine aminotransferase (SGPT), [id number] 13:14:00 * Test Item Value Reference Range Interpretation Comme nts alanine aminotransferase (SG PT), serum (test code = 1742-6) * [facility] Hospitalaspartate aminotransferase (SGOT), [id number] 13:14:00* Test Item Value Reference Range Interpretation Comme nts aspartate aminotransferase ( SGOT), serum (test code = 1920-8) * [facility] Hospitalalkaline phosphatase, [id number] 13:14:00* Test Item Value Reference Range Interpretation Comme [facility] alkaline phosphatase, serum (test code = 1783-0) * [facility] Hospitalbilirubin, serum, [id number] 13:14:00* Test Item Value Reference Range Interpretation Comme [facility] bilirubin, serum, total (pierre t code = 1975-2) * [facility] Hospitalalbumin/globulin ratio, [id number] 13:14:00* Test Item Value Reference Range Interpretation Comme [facility] albumin/globulin ratio, seru m (test code = 1759-0) * [facility] Hospitalglobulins, serum, [id number] 13:14:00* Test Item Value Reference Range Interpretation Comme [facility] globulins, serum, total (pierre t code = 2336-6) * [facility] Healthalbumin, [id number] 13:14:00* Test Item Value Reference Range Interpretation Comme nts albumin, serum (test code = 1751-7) * [facility] Healthprotein, total, [id number] 13:14:00* Test Item Value Reference Range Interpretation Comme nts protein, total, serum (test code = 2885-2) * [facility] Healthcalcium, [id number] 13:14:00* Test Item Value Reference Range Interpretation Comme nts calcium, serum (test code = 2000-8) * [facility] Hospitalcarbon dioxide, venous [id number] 13:14:00* Test Item Value Reference Range Interpretation Comme nts carbon dioxide, venous blood (test code = 2027-1) * [facility] Healthchloride, [id number] 13:14:00* Test Item Value Reference Range Interpretation Comme nts chloride, serum (test code = 2075-0) * [facility] Healthpotassium, [id number] 13:14:00* Test Item Value Reference Range Interpretation Comme nts potassium, serum (test code = 2823-3) * [facility] Healthsodium, [id number] 13:14:00* Test Item Value Reference Range Interpretation Comme nts sodium, serum (test code = 2951-2) * [facility] Hospitalurea nitrogen/creatinine ratio, [id number] 13:14:00 * Test Item Value Reference Range Interpretation Comme nts urea nitrogen/creatinine rat io, serum (test code = 3097-3) * [facility] HospitalEstimated Glomerular Filtration Rate (calc)2022-09-22 13:14:00* Test Item Value Reference Range Interpretation Comme nts Estimated Glomerular Filtrat ion Rate (calc) (test code = 72247-0) * [facility] Hospitalcreatinine, [id number] 13:14:00* Test Item Value Reference Range Interpretation Comme nts creatinine, serum (test code = 2160-0) * [facility]urea nitrogen, [id number] 13:14:00* Test Item Value Reference Range Interpretation Comme nts urea nitrogen, blood (test c ode = 3094-0) * [facility]blood glucose, [id number] 13:14:00* Test Item Value Reference Range Interpretation Comme nts blood glucose, random (test code = 2339-0) * [facility]HIV-1RNA, serum, by PCR, [id number] 14:57:00 * Test Item Value Reference Range Interpretation Comme nts HIV-1RNA, serum, by PCR, silas ntitative (test code = 83485-4) 90 /mL NOT DETECTED H [facility] Hospitalprotein, total, [id number] 14:55:00* Test Item Value Reference Range Interpretation Comme nts protein, total, serum (test code = 2885-2) 8.2 g/dL 6.1-8.1 H [facility] Hospitalcalcium, [id number] 14:55:00* Test Item Value Reference Range Interpretation Comme nts calcium, serum (test code = 2000-8) 9.5 mg/dL 8.6-10.2 N [facility] Hospitalcarbon dioxide, venous [id number] 14:55:00* Test Item Value Reference Range Interpretation Comme nts carbon dioxide, venous blood (test code = 2027-1) 30 mmol/L 20-32 N [facility] Hospitalchloride, [id number] 14:55:00* Test Item Value Reference Range Interpretation Comme nts chloride, serum (test code = 2075-0) 100 mmol/L 98-110 N [facility]potassium, [id number] 14:55:00* Test Item Value Reference Range Interpretation Comme nts potassium, serum (test code = 2823-3) 4.7 mmol/L 3.5-5.3 N [facility]alsodium, [id number] 14:55:00* Test Item Value Reference Range Interpretation Comme nts sodium, serum (test code = 2951-2) 136 mmol/L 135-146 N [facility] Hospitalurea nitrogen/creatinine ratio, [id number] 14:55:00 * Test Item Value Reference Range Interpretation Comme nts urea nitrogen/creatinine ratio, serum (test code = 3097-3) NOT APPLICABLE (calc) 6-22 [facility] HospitalEstimated Glomerular Filtration Rate (calc)2022-07-29 14:55:00* Test Item Value Reference Range Interpretation Comme nts Estimated Glomerular Filtration Rate (calc) (test code = 47609-5) 117 mL/min/{1.73 m2} See_Comment N [Automated message] The system which generated this result transmitted reference range: > OR = 60. The reference range was not used to interpret this result as normal/abnormal. [facility]creatinine, [id number] 14:55:00* Test Item Value Reference Range Interpretation Comme nts creatinine, serum (test code = 2160-0) 0.56 mg/dL 0.50-0.99 N [facility]urea nitrogen, [id number] 14:55:00* Test Item Value Reference Range Interpretation Comme nts urea nitrogen, blood (test c ode = 3094-0) 12 mg/dL 7-25 N [facility]blood glucose, [id number] 14:55:00* Test Item Value Reference Range Interpretation Comme [facility] blood glucose, random (test code = 2339-0) 92 mg/dL 65-99 N [facility]bilirubin, serum, [id number] 14:55:00* Test Item Value Reference Range Interpretation Comme nts bilirubin, serum, direct (test code = 1968-7) 0.1 mg/dL See_Comment N [Automated [employer] ge] The system which generated this result transmitted reference range: < OR = 0.2. The reference range was not used to interpret this result as normal/abnormal. [facility] HospitalNeisseria gonorrhoeae DNA [id number] 14:55:00* Test Item Value Reference Range Interpretation Comme [facility] Neisseria gonorrhoeae DNA pr obe (test code = 47226-9) NOT DETECTED NOT DETECTED N [facility] Hospitalchlamydia DNA [id number] 14:55:00* Test Item Value Reference Range Interpretation Comme [facility] chlamydia DNA probe (test co de = 34140-8) NOT DETECTED NOT DETECTED N [facility] HospitalHIV-1/HIV-2 Ab, [id number] 14:55:00* Test Item Value Reference Range Interpretation Comme [facility] HIV-1/HIV-2 Ab, serum (test code = 27950-4) POSITIVE NEGATIVE A [facility] HospitalHIV-CMIA (Chemiluminescent Microparticle Immuno Assay) 2022-07-29 14:55:00* Test Item Value Reference Range Interpretation Comme nts HIV-CMIA (Chemiluminescent Microparticle Immuno Assay) (test code = 67781-1) REPEATEDLY REACTIVE NON-REACTIVE A [facility] HospitalHepatitis C Antibody, Signal to Psd-[id number] 14:55:00* Test Item Value Reference Range Interpretation Comme nts Hepatitis C Antibody, Signal to Cut-Off (test code = 60994-6) 0.20 (unknown unit) <1.00 N [facility] Healthhepatitis C antibody, [id number] 14:55:00* Test Item Value Reference Range Interpretation Comme nts hepatitis C antibody, serum (test code = 5199-5) NON-REACTIVE NON-REACTIVE N [facility] Hospitalhepatitis B core antibody, [id number] 14:55:00* Test Item Value Reference Range Interpretation Comme nts hepatitis B core antibody, t otal (test code = 94733-4) NON-REACTIVE NON-REACTIVE N [facility] Hospitalhepatitis B surface [id number] 14:55:00* Test Item Value Reference Range Interpretation Comme nts hepatitis B surface antigen (test code = 31280-7) NON-REACTIVE NON-REACTIVE N [facility] Hospitalhepatitis B surface [id number] 14:55:00* Test Item Value Reference Range Interpretation Comme nts hepatitis B surface antibody (test code = 18926-9) NON-REACTIVE NON-REACTIVE N [facility] Hospitalhepatitis A antibody, [id number] 14:55:00* Test Item Value Reference Range Interpretation Comme nts hepatitis A antibody, total (test code = 08766-4) REACTIVE NON-REACTIVE A [facility] Healthlipase, [id number] 14:55:00* Test Item Value Reference Range Interpretation Comme nts lipase, serum (test code = 3040-3) 22 U/L 7-60 N [facility] Healthamylase, [id number] 14:55:00* Test Item Value Reference Range Interpretation Comme nts amylase, serum (test code = 1798-8) 39 1/L 21-101 N [facility] Hospitalhepatitis C antibody, [id number] 14:55:00* Test Item Value Reference Range Interpretation Comme nts hepatitis C antibody, serum (test code = 61133-4) NON-REACTIVE NON-REACTIVE [facility] HealthNeisseria gonorrhoeae DNA [id number] 14:55:00* Test Item Value Reference Range Interpretation Comme nts Neisseria gonorrhoeae DNA pr obe (test code = 59215-9) NOT DETECTED NOT DETECTED N [facility] HospitalQuantiferon Gold TB blood test for tuberculosis screening 2022-07-29 14:55:00* Test Item Value Reference Range Interpretation Comme nts Quantiferon Gold TB blood te st for tuberculosis screening (test code = 48399-9) NEGATIVE NEGATIVE N [facility] Hospitalurine [id number] 14:55:00* Test Item Value Reference Range Interpretation Comme nts urine culture (test code = 630-4) No Growth [facility] Hospitalrapid plasma reagin antibody, [id number] 14:55:00* Test Item Value Reference Range Interpretation Comme nts rapid plasma reagin antibody , serum (test code = 5291-0) NON-REACTIVE NON-REACTIVE N [facility] Hospitalhuman chorionic gonadotropin, total, [id number] 14:55:00* Test Item Value Reference Range Interpretation Comme nts human chorionic gonadotropin , total, serum (test code = 3386) <3 mIU/mL [facility]althtoxoplasma gondii antibody, [id number] 14:55:00* Test Item Value Reference Range Interpretation Comme [facility] toxoplasma gondii antibody, IgG (test code = 5389-2) <7.20 [facility] Healthbasophils as percent of blood [id number] 14:55:00* Test Item Value Reference Range Interpretation Comme nts basophils as percent of bloo d leukocytes (test code = 707-0) 0.4 % [facility] Healtheosinophils as percent of blood [id number] 14:55:00* Test Item Value Reference Range Interpretation Comme nts eosinophils as percent of bl ood leukocytes (test code = 714-6) 0.5 % [facility] Healthmonocytes as percent of blood [id number] 14:55:00* Test Item Value Reference Range Interpretation Comme [facility] monocytes as percent of bloo d leukocytes (test code = 5905-5) 8.0 % [facility] Healthlymphocytes as percent of blood [id number] 14:55:00* Test Item Value Reference Range Interpretation Comme nts lymphocytes as percent of bl ood leukocytes (test code = 736-9) 41.1 % [facility] Healthneutrophils as percent of blood [id number] 14:55:00* Test Item Value Reference Range Interpretation Comme nts neutrophils as percent of bl ood leukocytes (test code = 770-8) 50 % N [facility] Hospitalbasophil count, [id number] 14:55:00* Test Item Value Reference Range Interpretation Comme nts basophil count, absolute (te st code = 50314-2) 31 cells/uL 0-200 N [facility] HospitalAbsolute Eosinophil [id number] 14:55:00* Test Item Value Reference Range Interpretation Comme nts Absolute Eosinophil count (t est code = 66975-4) 39 cells/mcL 15-500 N [facility] HospitalAbsolute Monocyte [id number] 14:55:00* Test Item Value Reference Range Interpretation Comme nts Absolute Monocyte count (pierre t code = 95318-7) 616 cells/mcL 200-950 N [facility] Neutrophil [id number] 14:55:00* Test Item Value Reference Range Interpretation Comme nts Absolute Neutrophil count (test code = 78985-2) 3850 cells/mcL 3568-9048 N [facility] platelet [id number] 14:55:00* Test Item Value Reference Range Interpretation Comme nts mean platelet volume (test c ode = 776-5) 11.4 fL 7.5-12.5 N [facility] Hospitalplatelet [id number] 14:55:00* Test Item Value Reference Range Interpretation Comme [facility] platelet count (test code = 777-3) 402 THOUSAND/UL 140-400 H [facility] Hospitalred blood cell distribution [id number] 14:55:00* Test Item Value Reference Range Interpretation Comme [facility] red blood cell distribution width (test code = 788-0) 17.5 % 11.0-15.0 H [facility] corpuscular hemoglobin concentration, [id number] 14:55:00* Test Item Value Reference Range Interpretation Comme [facility] mean corpuscular hemoglobin concentration, RBC (test code = 786-4) 31.5 G/DL 32.0-36.0 L [facility] corpuscular hemoglobin, [id number] 14:55:00* Test Item Value Reference Range Interpretation Comme nts mean corpuscular hemoglobin, RBC (test code = 785-6) 25.1 pg 27.0-33.0 L [facility] Hospitalmean corpuscular volume, [id number] 14:55:00* Test Item Value Reference Range Interpretation Comme nts mean corpuscular volume, RBC (test code = 787-2) 79.6 fL 80.0-100.0 L [facility] Hospitalhematocrit, [id number] 14:55:00* Test Item Value Reference Range Interpretation Comme nts hematocrit, blood (test code = 4544-3) 37.5 % 35.0-45. 0 N [facility] Hospitalhemoglobin, [id number] 14:55:00* Test Item Value Reference Range Interpretation Comme nts hemoglobin, blood (test code = 718-7) 11.8 g/dL 11.7-15.5 N [facility] Hospitalerythrocyte (RBC) [id number] 14:55:00* Test Item Value Reference Range Interpretation Comme [facility] erythrocyte (RBC) count (pierre t code = 789-8) 4.71 MILLION/UL 3.80-5.10 N [facility] Hospitalleukocyte count, [id number] 14:55:00* Test Item Value Reference Range Interpretation Comme nts leukocyte count, blood (test code = 6690-2) 7.7 THOUSAND/UL 3.8-10.8 N [facility] Hospitalhyaline casts, [id number] 14:55:00* Test Item Value Reference Range Interpretation Comme nts hyaline casts, urine (test c ode = 5796-8) NONE SEEN NONE SEEN N [facility] Hospitalbacteria, urine [id number] 14:55:00* Test Item Value Reference Range Interpretation Comme nts bacteria, urine microscopy ( test code = 5769-5) NONE SEEN NONE SEEN N [facility] Hospitalsquamous epithelial [id number] 14:55:00* Test Item Value Reference Range Interpretation Comme nts squamous epithelial cells (test code = 4507) NONE SEEN /HPF See_Comment N [Automated messa ge] The system which generated this result transmitted reference range: < OR = 5. The reference range was not used to interpret this result as normal/abnormal. [facility] HospitalRBC, [id number] 14:55:00* Test Item Value Reference Range Interpretation Comme nts RBC, Urine (test code = 39677-8) 20-40 /HPF See_Comment A [Automated messa ge] The system which generated this result transmitted reference range: < OR = 2. The reference range was not used to interpret this result as normal/abnormal. [facility] HospitalWBC urine on fpopnpjgmj8296-67-37 14:55:00* Test Item Value Reference Range Interpretation Comme nts WBC urine on microscopy (test code = 1016) 0-5 /HPF See_Comment N [Automated messa ge] The system which generated this result transmitted reference range: < OR = 5. The reference range was not used to interpret this result as normal/abnormal. [facility] Hospitalleukocyte esterase, urine, by [id number] 14:55:00 * Test Item Value Reference Range Interpretation Comme nts leukocyte esterase, urine, b y dipstick (test code = 5799-2) TRACE NEGATIVE A [facility] Hospitalnitrite, urine, [id number]2 14:55:00* Test Item Value Reference Range Interpretation Comme nts nitrite, urine, semiquantita tive (test code = 5802-4) NEGATIVE NEGATIVE N [facility] Hospitalprotein, urine, semiquantitative (dipstick)2022-07-29 14:55:00* Test Item Value Reference Range Interpretation Comme nts protein, urine, semiquantita tive (dipstick) (test code = 1753-3) TRACE NEGATIVE A [facility] Hospitaloccult blood, stool (E&M)2022-07-29 14:55:00* Test Item Value Reference Range Interpretation Comme nts occult blood, stool (E&M) (t est code = 2335-8) 3+ NEGATIVE A [facility] Hospitalketones, urine, by test [id number] 14:55:00* Test Item Value Reference Range Interpretation Comme nts ketones, urine, by test stri p (test code = 5797-6) NEGATIVE NEGATIVE N [facility] Hospitalbilirubin, [id number] 14:55:00* Test Item Value Reference Range Interpretation Comme nts bilirubin, urine (test code = 5770-3) NEGATIVE NEGATIVE N [facility] Hospitalglucose, urine, [id number] 14:55:00* Test Item Value Reference Range Interpretation Comme nts glucose, urine, semiquantita tive (test code = 5792-7) NEGATIVE NEGATIVE N [facility] HospitalpH, urine, [id number]8 14:55:00* Test Item Value Reference Range Interpretation Comme nts pH, urine, semiquantitative (test code = 5803-2) 6.0 (unknown unit) 5.0-8.0 N [facility] Hospitalspecific gravity, [id number] 14:55:00* Test Item Value Reference Range Interpretation Comme nts specific gravity, urine (test code = 5811-5) 1.009 (unknown unit) 1.001-1.035 N [facility] Hospitalappearance, [id number] 14:55:00* Test Item Value Reference Range Interpretation Comme nts appearance, urine (test code = 5767-9) CLOUDY CLEAR A [facility] Hospitalurine [id number] 14:55:00* Test Item Value Reference Range Interpretation Comme nts urine color (test code = 5778-6) DARK YELLOW YELLOW N [facility] Hospitallymphocytes, [id number] 14:55:00* Test Item Value Reference Range Interpretation Comme nts lymphocytes, absolute (test code = 26536-1) 3165 CELLS/UL 850-3900 N [facility] HospitalCD4/CD8 [id number] 14:55:00* Test Item Value Reference Range Interpretation Comme nts CD4/CD8 ratio (test code = 42847) 0.61 (unknown unit) 0.86-5.00 L [facility] Hospitalabsolute [id number] 14:55:00* Test Item Value Reference Range Interpretation Comme nts absolute CD8 (test code = 61283) 1467 (unknown unit) 180-1170 H [facility] HospitalT-suppressor cells (CD8) as percent of blood lymphocytes 2022-07-29 14:55:00* Test Item Value Reference Range Interpretation Comme nts T-suppressor cells (CD8) as percent of blood lymphocytes (test code = 3517) 46 % 12-42 H [facility] HospitalT-helper cells (CD4) [id number] 14:55:00* Test Item Value Reference Range Interpretation Comme nts T-helper cells (CD4) count ( test code = 14105-3) 890 CELLS/UL 490-1740 N [facility] HospitalT-helper cells (CD4) as percent of blood lymphocytes 2022-07-29 14:55:00* Test Item Value Reference Range Interpretation Comme nts T-helper cells (CD4) as perc ent of blood lymphocytes (test code = 8123-2) 28 % 30-61 L [facility] Hospitalalanine aminotransferase (SGPT), [id number] 14:55:00 * Test Item Value Reference Range Interpretation Comme nts alanine aminotransferase (SG PT), serum (test code = 1742-6) 205 1/L 6-29 H [facility] Hospitalaspartate aminotransferase (SGOT), [id number] 14:55:00* Test Item Value Reference Range Interpretation Comme nts aspartate aminotransferase ( SGOT), serum (test code = 1920-8) 60 1/L 10-30 H [facility] Hospitalalkaline phosphatase, [id number] 14:55:00* Test Item Value Reference Range Interpretation Comme nts alkaline phosphatase, serum (test code = 1783-0) 180 1/L 31-125 H [facility] Hospitalbilirubin, serum, [id number] 14:55:00* Test Item Value Reference Range Interpretation Comme nts bilirubin, serum, total (pierre t code = 1975-2) 0.6 mg/dL 0.2-1.2 N [facility] Hospitalalbumin/globulin ratio, [id number] 14:55:00* Test Item Value Reference Range Interpretation Comme nts albumin/globulin ratio, seru m (test code = 1759-0) 0.9 (calc) 1.0-2.5 L [facility] Hospitalglobulins, serum, [id number] 14:55:00* Test Item Value Reference Range Interpretation Comme nts globulins, serum, total (pierre t code = 2336-6) 4.3 G/DL (CALC) 1.9-3.7 H [facility] Hospitalalbumin, [id number] 14:55:00* Test Item Value Reference Range Interpretation Comme nts albumin, serum (test code = 1751-7) 3.9 g/dL 3.6-5.1 N [facility] Notes Date/Time Note Provider Source 2024-05-03 10:16:44 Chief Complaint Patient presents with Follow-up Back flank pain for 3 months. Went to ER 04/07/24 Radha Jacob LVN [facility] 2023-11-30 14:28:03 Chief Complaint Patient presents with Follow-up Hospitalization ER for right hip pain Radha Jacob LVN [facility] 2023-04-20 09:31:20 Formatting of this n ote is different from the original. 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
[2024-08-16 12:07] LABS: Absolute Eosinophils 0.1 K/uL (0-0.5); Absolute Monocytes 0.7 K/uL (0.1-1.3); Absolute Neutrophil 1.9 K/uL (1.8-8.0); Basophils % 0.3 % (0-1.3); Eosinophils % 2.1 % (0-4.4); Hemoglobin 9.8 g/dL (12.0-15.0); Lymphocytes % 52.3 % (15.3-44.8); MCH 21.9 pg (27.0-35.0); MCHC 30.7 g/dL (32.0-36.0); MCV 71.4 fL (80-100); MPV 9.1 fL (7.6-11.3); Monocytes % 12.3 % (3.3-12.3); Platelets 333 thou/uL (152-406); RBC Red Blood Cell Count 4.49 M/uL (3.86-4.86); Red Cell Distribution Width 17.8 % (12.1-15.2)
[2024-08-16 12:11] LABS: Specific Gravity 1.008 (1.005-1.030); Sqamous Epithelial <5 /HPF (None Seen); Urine Bacteria None Seen /HPF (<20); Urine Bilirubin NEGATIVE (Negative); Urine Blood Negative (Negative); Urine Clarity Clear (Clear); Urine Color Light-Yellow (Yellow); Urine Culture Reflex Order NOT NEEDED; Urine Glucose NEGATIVE (Negative); Urine Ketones NEGATIVE (Negative); Urine Microscopic Reflex YN ORDER UMIC; Urine Mucus Slight /HPF (None Seen); Urine Nitrite NEGATIVE (Negative); Urine Protein NEGATIVE (Negative); Urine RBC <5 /HPF (None Seen); Urine Urobilinogen Normal (Normal); Urine WBC None Seen /HPF (<5); Urine pH 5.5 (5.0-7.0)
[2024-08-16 12:18] LABS: Albumin 3.1 g/dL (3.4-5.0); Albumin/Globulin Ratio 0.6 (1.1-1.8); Bilirubin Total 0.6 mg/dL (0.2-1.0); Globulin 5.2 g/dL (2.3-3.5); Protein, Total 8.3 g/dL (6.4-8.2)
--- NOTE | 2024-08-16 12:50 | RAD REPORT ---
EXAMINATION: CT ABDOMEN AND PELVIS WITH CONTRAST CLINICAL INDICATION: ABD PAIN TECHNIQUE: CT abdomen and pelvis was performed, after the administration of IV contrast, as per [facility]. Axial, sagittal and coronal reconstructions were obtained. One or more of the following dose reduction techniques were used: Automated exposure control, adjustment of the mA and k V according to patient size, and iterative reconstruction. Unless otherwise specified, incidental findings do not require dedicated imaging follow-up. COMPARISON: 07/24/2022 FINDINGS: LOWER CHEST: The visualized lung bases are clear. LIVER: Mild fatty liver is present. No focal lesion or biliary dilatation is seen. Cholecystectomy clips. SPLEEN: Normal size. No focal lesion. PANCREAS: No mass, ductal dilation, or brianna-pancreatic fluid. ADRENALS: Normal; no mass. KIDNEYS: Normal size and contour. No hydronephrosis. GASTROINTESTINAL TRACT: No evidence of free air, significant intra-abdominal free fluid, bowel obstru ction or abscess. APPENDIX: Normal appendix. LYMPH NODES: No lymphadenopathy. MUSCULOSKELETAL: Prominent posterior disc bulge L5-S1. ADDITIONAL FINDINGS: Small fat-containing umbilical hernia. IMPRESSION: No acute or concerning abnormalities seen in the abdomen or pelvis.
[2024-08-16 13:33] LABS: Anisocytosis 1+; Atypical Lymphocytes 3 %; Blood Morphology Comment NOTED (NOT SEEN); Differential Total Cells Count 100; Eosinophils 3 % (0-3); Hypochromasia 1+; Lymphocytes 48 % (15-42); Microcytosis 1+; Monocytes 14 % (0-10); Platelet Estimate ADEQ; Segmented Neutrophils 32 % (40-80)
--- NOTE | 2024-08-16 13:46 | ER ---
Nurse's Notes [facility] Name: Saskia Urbina Age: 43 yrs Sex: Female : 1980 Arrival Date: 08/16/2024 Time: 09:22 Bed 8 Private MD: Diagnosis: Abdominal pain, Generalized Presentation: 08/16 10:09 Chief complaint: Patient states: lower abd pain that began 4-5 days ago. Pt reports aa5 diarrhea. Denies nausea/vomiting. Coronavirus screen: diarrhea. Ebola Screen: Patient denies travel to an Ebola-affected area in the 21 days before illness onset. 10:09 Method Of Arrival: Ambulatory aa5 10:09 Acuity: PAGE 3 aa5 10:09 Initial Sepsis Screen: Does the patient meet any 2 criteria? No. Patient's initial aa5 sepsis screen is negative. Does the patient have a suspected source of infection? No. Patient's initial sepsis screen is negative. Risk Assessment: Do you want to hurt yourself or someone else? Patient reports no desire to harm self or others. Onset of symptoms was 2023. Triage Assessment: 10:10 General: Appears in no apparent distress. obese, Behavior is calm, cooperative, bp appropriate for age. Pain: Complains of pain in abdomen. EENT: No deficits noted. Neuro: No deficits noted. Cardiovascular: No deficits noted. Respiratory: No deficits noted. GI: Abdomen is obese, Bowel sounds present X 4 quads. Reports diarrhea. : No signs and/or symptoms were reported regarding the genitourinary system. Derm: No deficits noted. Musculoskeletal: No deficits noted. 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 - Infectious Disease History:: Denies. - Social history:: Smoking status: Patient denies any tobacco usage or history of. Screenin:18 [facility] ED Fall Risk Assessment (Adult) History of falling in the last 3 months, bp including since admission No falls in past 3 months (0 pts) Confusion or Disorientation No (0 pts) Intoxicated or Sedated No (0 pts) Impaired Gait No (0 pts) Mobility Assist Device Used No (0 pt) Altered Elimination No (0 pt) Score/Fall Risk Level 0 - 2 = Low Risk Oriented to surroundings. Abuse screen: Denies threats or abuse. Denies injuries from another. Nutritional screening: No deficits noted. Tuberculosis screening: No symptoms or risk factors identified. Assessment: 10:10 General: Appears in no apparent distress. Behavior is calm, cooperative, appropriate bp for age. GI: Abd is soft X 4 quads. 12:18 Reassessment: Patient appears in no apparent distress at this time. Patient is alert, bp oriented x 3, equal unlabored respirations, skin warm/dry/pink. GI: Bowel sounds present X 4 quads. Vital Signs: 10:09 BP 125 / 86; Pulse 54; Resp 18 S; Temp 98(O); Pulse Ox 96% on R/A; Weight 109.77 kg aa5 (R); Height 5 ft. 5 in. (R); 12:18 BP 125 / 74; Pulse 53; Resp 16; Pulse Ox 97% ; bp 10:09 Body Mass Index 40.27 (109.77 kg, 165.1 cm) aa5 ED Course: 09:33 Patient arrived in ED. mg5 10:09 Arm band placed on. aa5 10:11 Triage completed. aa5 10:22 Carmelo Price MD is Attending Physician. bo1 10:45 Ahsan Bearden, RN is Primary Nurse. bp 11:51 Initial lab(s) drawn, by ne, sent to lab. Urine collected: clean catch specimen, bp cloudy. Inserted saline lock: 22 gauge in right forearm, using aseptic technique. Blood collected. Flushed with 10 mL NS. 12:18 Patient has correct armband on for positive identification. bp 12:34 CT Abd/Pelvis - IV Contrast Only In Process Unspecified. EDMS 13:45 Dash Carrera MD is Referral Physician. bo1 14:08 Provided Education on: discharge instructions. ap3 14:08 No provider procedures requiring assistance completed. IV discontinued, intact, ap3 bleeding controlled, No redness/swelling at site. Pressure dressing applied. Administered Medications: No medications were administered Medication: 14:09 VIS not applicable for this client. ap3 Outcome: 13:45 Discharge ordered by . bo1 14:08 Discharged to home ambulatory, ap3 14:08 Condition: good 14:08 Condition: good 14:08 Discharge instructions given to patient, Instructed on discharge instructions, follow up and referral plans. Demonstrated understanding of instructions, follow-up care, medications, Prescriptions given X 2, 14:09 Patient left the ED. ap3 Signatures: Dispatcher [employer] EDKirsten Green RN RN aa5 Ahsan Bearden RN RN bp Prokisch, Amanda, RN RN ap3 Ritu Alves mg5 Carmelo Price MD MD bo1
--- NOTE | 2024-08-16 13:46 | EDPHYS ---
Physician Documentation [facility] Name: Saskia Urbina Age: 43 yrs Sex: Female : 1980 Arrival Date: 08/16/2024 Time: 09:22 Bed 8 Private MD: ED Physician Carmelo Price HPI: 08/16 11:39 This 43 yrs old Female presents to ER via Ambulatory with complaints of bo1 Abdominal Pain. 11:39 Hx of 5 days of abd pain - all day. Onset: The symptoms/episode began/occurred bo1 gradually. Hx of gallbladder surgery 2 years ago. 13:37 Severity of symptoms: At their worst the symptoms were moderate 5 day(s) ago. The bo1 patient has not experienced similar symptoms in the past. 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 - Infectious Disease History:: Denies. - Social history:: Smoking status: Patient denies any tobacco usage or history of. ROS: 13:38 Constitutional: Negative for fever, chills, and weight loss bo1 13:38 Constitutional: Negative for poor PO intake, 13:38 Neck: Negative for pain at rest, 13:38 Cardiovascular: Negative for chest pain, 13:38 Respiratory: Negative for cough, shortness of breath, 13:38 Abdomen/GI: Positive for abdominal pain, abdominal cramps, Negative for diarrhea, abdominal distension, rectal bleeding, 13:38 Back: Negative for radiated pain, 13:38 : Negative for urinary symptoms, 13:38 Skin: Negative for rash, 13:38 All other systems are negative, Exam: 13:40 Constitutional: This is a well developed, well nourished patient who is awake, alert, bo1 and in no acute distress. 13:40 Constitutional: The patient appears in no acute distress, alert, awake, comfortable, non-toxic, well developed, well nourished, 13:40 Eyes: Sclera: no acute changes, icterus, is not appreciated, 13:40 Neck: External neck: is normal, no acute changes, 13:40 Cardiovascular: Rate: normal, bradycardic, Rhythm: regular, Pulses: no pulse deficits are appreciated, 13:40 Respiratory: the patient does not display signs of respiratory distress, Respirations: normal, Breath sounds: are clear throughout, 13:40 Abdomen/GI: Inspection: abdomen appears normal, Palpation: mild abdominal tenderness, rebound tenderness, is not appreciated, involuntary guarding, no appreciated organomegaly, 13:40 Back: CVA tenderness, is absent, 13:40 Musculoskeletal/extremity: DVT Exam: no pain, no swelling, 13:40 Skin: lesion(s), are not present, Vital Signs: 10:09 BP 125 / 86; Pulse 54; Resp 18 S; Temp 98(O); Pulse Ox 96% on R/A; Weight 109.77 kg aa5 (R); Height 5 ft. 5 in. (R); 12:18 BP 125 / 74; Pulse 53; Resp 16; Pulse Ox 97% ; bp 10:09 Body Mass Index 40.27 (109.77 kg, 165.1 cm) aa5 MDM: 10:23 Medical Screening Exam initiated bo1 13:43 Differential Diagnosis Abd pain - unknown causes, pancreatitis, bowel obstruction, bo1 gastroenteritis. Data reviewed: vital signs, lab test result(s), radiologic studies, CT scan. ED course: Pt is stable and will be placed on PO trial and F/U to see GI. 08/16 11:40 Order name: CBC with Diff; Complete Time: 13:37 bo1 08/16 11:40 Order name: CMP; Complete Time: 12:22 bo1 08/16 11:40 Order name: Lipase; Complete Time: 12:22 bo1 08/16 11:40 Order name: Urinalysis w/ reflexes; Complete Time: 12:22 bo1 08/16 13:34 Order name: Manual Differential; Complete Time: 13:37 EDMS 12 11:40 Order name: CT Abd/Pelvis - IV Contrast Only; Complete Time: 13:01 bo1 08/16 11:40 Order name: IV Saline Lock; Complete Time: 11:52 bo1 08/16 11:40 Order name: Labs collected and sent; Complete Time: 11:52 bo1 Administered Medications: No medications were administered Disposition Summary: 08/16/24 13:45 Discharge Ordered Notes: Location: Home bo1 Problem: an acute exacerbation bo1 Symptoms: are unchanged bo1 Condition: Stable bo1 Diagnosis - Abdominal pain, Generalized bo1 Followup: bo1 - With: Dash Carrera MD - When: Upon discharge from the Emergency Department - Reason: Recheck today's complaints, Continuance of care Discharge Instructions: - Discharge Summary Sheet bo1 - Abdominal Pain, Adult bo1 Forms: - Medication Reconciliation Form bo1 - Antibiotic Education bo1 - Prescription Opioid Use bo1 - Patient Portal Instructions bo1 - Leadership Thank You Letter bo1 Prescriptions: - Pepcid 20 mg Oral Tablet - take 1 tablet ORAL route every 12 hours for 5 days; 10 tablet; Refills: 0, bo1 Product Selection Permitted - dicyclomine 20 mg Oral tablet - take 1 tablet ORAL route 4 times per day; 20 tablet; Refills: 0, Product bo1 Selection Permitted Signatures: Dispatcher [employer] Kirsten Dumas, RN RN aa5 OeiCarmelo MD MD bo1
[2024-08-16 16:22] VITALS: TEMP 98
[2024-08-16 16:23] VITALS: BP 125/74; O2SAT 97
== END 2024-08-16 14:09 | disposition home or self-care (01) ==
LOC: ER 09:22
DX: R10.84 Generalized abdominal pain (principal); Z21 Asymptomatic human immunodeficiency virus [HIV] infection status
CPT/HCPCS: 85025; 81001; 36415; 83690; 80053; 74177; 99284; Q9967